=== PATIENT | female | born 1955 | race Caucasian/White ===

== ENCOUNTER 2022-02-27 08:53 | Outpatient (CLI) | payer OTHER, SELFPAY ==
--- NOTE | 2022-02-27 | DI.US_ITS ---
Exam(s) US LOWER EXTREMITY VENOUS LT EXAM: US LOWER EXTREMITY VENOUS LT CLINICAL HISTORY: PT WITH CA,LLE EDEMA, ? DVT,R60.0,C34.32 TECHNIQUE: Grayscale, color, and doppler imaging of the deep venous system of the left lower extremi ty was performed. COMPARISON: No exams were available for comparison FINDINGS: There is no evidence of intraluminal thrombus and there is normal compression and augmentation demons trated within the common femoral vein, femoral vein, and popliteal vein. In the ipsilateral calf the interrogated veins also exhibit normal compression/ augmentation properti es. The ipsilateral saphenofemoral junction is patent. IMPRESSION: 1. No evidence of DVT in the left lower extremity. DATA REPOSITORY:
== END 2022-02-27 09:13 ==
PROVIDERS: PCP Family Medicine; Visit Provider Nurse Practitioner Adult Health
DX: R60.0 Localized edema (principal); C34.32 Malignant neoplasm of lower lobe, left bronchus or lung; M79.662 Pain in left lower leg
CPT/HCPCS: 93971

== ENCOUNTER 2022-04-01 14:12 | Emergency (ER) | payer OTHER, SELFPAY ==
[2022-04-01 14:22] VITALS: BP 117/75; PULSE 110; RESP 22; TEMP 37.2; O2SAT 97
--- NOTE | 2022-04-01 14:45 | DI.CT_ITS ---
Exam(s) CT RENAL COLIC WO EXAM: CT RENAL COLIC WO CLINICAL HISTORY: right flank pain. TECHNIQUE: Imaging Protocol: Axial computed tomography images with coronal and sagittal reformatted images were created and reviewed. COMPARISON: No exams were available for comparison FINDINGS: ABDOMEN: Lung Bases: Normal where visualized. Liver: There is a 4.1 AP by 3.3 transverse by 3 cm craniocaudad hypodense lesion in the right lobe of the liver. No measurable mass. Gallbladder and biliary tract: No radiodense calculus or biliary ductal dilation. Pancreas: Normal density, no abnormal calcifications or inflammatory process. Spleen: Normal. Kidneys: Normal size, contour and axis.No radiodense stones or obstructive uropathy. No masses seen. Adrenal glands: There is mild thickening of the limbs of the adrenal glands but no nodule is seen. Lymph nodes: Within normal limits. Abdominal Aorta: There is a 3.3 x 3.1 cm infrarenal abdominal aortic aneurysm. Atherosclerosis is pr esent. There is calcification seen centrally within the aneurysm which may reflect thrombus or possi ble prior dissection. PELVIS: Bladder:Symmetric distention, no gross wall thickening. Bowel: There is diverticulosis seen in the descending and sigmoid colon but no evidence of acute dive rticulitis. There is a right paracentral anterior abdominal wall hernia containing a segment of rosa sverse colon. The involved colon shows thickening of the wall and mild infiltration of the surroundi ng fat. No obstruction is seen. No evidence of appendicitis. Peritoneal cavity: No ascites, collection or mesenteric inflammatory response. No free air. Reproductive organs: Status post hysterectomy. Bones: Grade 1 degenerative anterolisthesis of L5 on S1. Moderate lumbar spondylosis. Soft Tissues: Anterior abdominal wall hernia as described above. IMPRESSION: 1. Anterior abdominal wall hernia containing a loop of transverse colon. There is thickening of the wall of the involved transverse colon and infiltration of the surrounding fat raising the question of strangulation. No evidence of obstruction. 2. No evidence of nephrolithiasis or hydronephrosis. 3. 4.1 cm hypodense lesion in the right lobe of the liver. It does not meet the criteria for simple cyst. A postcontrast CT scan of the liver is recommended for further evaluation. 4. Findings were discussed with Dr. Neha Coleman at 4:15 p.m. on 04/01/2022. RADIATION DOSE DELIVERED: 821.96mGy.cm Total DLP DATA REPOSITORY: All CT scans at this facility are submitted to the National Radiology Data Registry (NRDR) Dose Index Registry (DIR) with the [employer] (ACR). RADIATION OPTIMIZATION: All CT scans at this facility use at least one of these dose optimization te chniques: automated exposure control; mA and/or kV adjustment per patient size (includes targeted exa ms where dose is matched to clinical indication); or iterative reconstruction.
--- NOTE | 2022-04-01 14:58 | ED.GENADUL_ITS ---
Discharge Plan Disposition Patient Disposition: STILL A PATIENT Discharge Details Chief Complaint: FlankPain Primary Care Provider: Joon Campos ED Provider: Neha Coleman Home Meds and New Rx's Prescriptions: No Action cyclobenzaprine 10 MG tablet 10 mg PO Q8H PRN PRN fluticasone propion-salmeterol [Advair Diskus] 1 PUFF blister with device 1 puff Inhalation BID omeprazole 40 MG capsule,delayed release(DR/EC) 40 mg PO DAILY lidocaine [Lidoderm] 1 PATCH adhesive patch,medicated 1 patch Topical DAILY Label Comments: 06/02/13 1 patch tp daily for no more than 12hours per MD.06/10/13 pt hasnot filled yet gabapentin 300 MG capsule 300 mg PO TID albuterol sulfate [Ventolin HFA] 200 PUFF HFA aerosol inhaler 2 puff Inhalation Q4H PRN PRN multivitamin 1 EACH capsule 1 cap PO DAILY tizanidine 2 mg capsule Label Comments: TAKE 1 TO 2 CAPSULES BY MOUTH TWICE DAILY NEEDED FOR PAIN atorvastatin 40 mg tablet 1 tab QPM Label Comments: TAKE 1 TABLET BY MOUTH ONCE DAILY meloxicam 15 mg tablet 1 tab QAM Label Comments: TAKE 1 TABLET BY MOUTH ONCE DAILY NEEDED lisinopril 20 mg tablet 20 mg QAM Label Comments: TAKE 1 TABLET BY MOUTH ONCE DAILY lisinopril 20 mg tablet 1 tab QAM Label Comments: TAKE 1 TABLET BY MOUTH ONCE DAILY fluticasone propion-salmeterol [Advair Diskus] 500-50 mcg/dose blister with device 1 ea INHALATION QAM Label Comments: INHALE 1 DOSE BY MOUTH EVERY 12 HOURS gabapentin 300 mg capsule 300 mg PRN PRN Label Comments: TAKE 2 CAPSULES BY MOUTH IN THE MORNING AND 1 AT NOON AND 4 AT BEDTIME montelukast 10 mg tablet 1 tab QPM Label Comments: TAKE 1 TABLET BY MOUTH ONCE DAILY FOR ALLERGIES albuterol sulfate 90 mcg/actuation HFA aerosol inhaler 2 puff INHALATION PRN PRN Label Comments: INHALE 2 PUFFS BY MOUTH EVERY 4 HOURS NEEDED FOR WHEEZING /COUGH Spiriva Respimat 2.5 mcg/actuation mist 1 spray INHALATION DAILY Label Comments: INHALE 2 SPRAY(S) BY MOUTH ONCE DAILY B12 Active 1,000 mcg Tablet,Chewable 1,000 mcg PO QAM Medical Decision Making Concern for pyelonephritis, ureterolithiasis, other. Exam/history at this time not consistent with appendicitis, acute aortic pathology, sepsis. Plan for IV placement, IV fluid hydration, IV pain medication, screening labs, CT renal. Will monitor and reassess. Patient signed out to Dr. Elder at time of shift change with CT, UA pending Medical Records Medical records reviewed: Yes I reviewed the patient's medical records. Lab Data Lab results reviewed: Yes I reviewed the patient's lab results. Labs: Laboratory Tests Range/Units 04/01/22 04/01/22 04/01/22 15:08 15:08 15:12 WBC (4.4-10.8) 10^3/uL 4.94 RBC (3.93-5.22) 10^6/uL 3.57 L Hgb (11.2-15.7) g/dL 11.4 Hct (36.0-46.0) % 33.5 L MCV (80-95) fL 94 MCH (27.0-33.0) pg 31.9 MCHC (32.0-36.0) % 34.0 RDW (11.7-14.6) % 16.4 H Plt Count (130-400) 10^3/uL 95 L MPV (8.0-11.0) fL 10.6 Immature Gran % 0.0 Neutrophils % 61.0 Lymphocytes % 23.0 Atypical Lymphs % 3 Monocytes % 9.0 Eosinophils % 4.0 Basophils % 0.0 Nucleated RBC % (0.0-0.3) % 0.0 Absolute Neutrophils (1.2-6.7) 10^3/uL 3.01 Absolute Lymphocytes (1.2-3.4) 10^3/uL 1.28 Absolute Monocytes (0.1-0.8) 10^3/uL 0.44 Absolute Eosinophils (0.0-0.7) 10^3/uL 0.20 Absolute Basophils (0.0-0.2) 10^3/uL 0.00 RBC Morphology Normal Sodium (136-145) mmol/L 142 Potassium (3.5-5.1) mmol/L 3.6 Chloride (98-107) mmol/L 106 Carbon Dioxide (21.0-32.0) mmol/L 29.2 Anion Gap (3-11) mmol/L 6.8 BUN (7-18) mg/dL 10 Creatinine (0.55-1.02) mg/dL 0.9 Est GFR (CKD-EPI 2020) (mL/min/1.73m2) 70.95 Glucose (74-106) mg/dL 98 Calcium (8.5-10.1) mg/dL 9.1 Total Bilirubin (0.2-1.0) mg/dL 0.2 AST (15-37) U/L 25 ALT (14-59) U/L 43 Alkaline Phosphatase (46-116) U/L 88 Total Protein (6.4-8.2) g/dL 7.1 Albumin (3.4-5.0) g/dL 3.0 L Urine Color Cancelled Urine Clarity Cancelled Urine pH Cancelled Ur Specific [place] Cancelled Urine Protein Cancelled Urine Ketones Cancelled Urine Blood Cancelled Urine Nitrite Cancelled Urine Bilirubin Cancelled Urine Urobilinogen Cancelled Ur Leukocyte Esterase Cancelled Urine Glucose Cancelled HPI General Mode of arrival: ambulatory . Date/Time Provider Initiated Documentation: 04/01/22 14:45 . Limitations to Documentation: no limitations . Information obtained by: patient, RN notes reviewed and old records reviewed . HPI Narrative: Aydee Lee is a 66-year-old woman with a history of asthma, depression, GERD, hyperlipidemia, lung cancer with mets to the liver, spine, and brain presenting to the emergency department with flank pain. Patient reports that she is currently being treated for lung cancer with radiation, immunotherapy, chemotherapy. She reports that her last chemotherapy infusion was 2 weeks ago and she is due for another in 1 week. Patient reports that 2 days ago she developed pain in her right flank that is waxing and waning. Patient reports that she had similar pain in the past 40 years ago when she had a kidney infection or kidney stone. She states that she has been taking Tylenol with some relief. She states that she had a fever of 100.2 this morning, has not had other fevers. She denies any other new pain, vomiting, diarrhea, numbness, focal weakness, rash. Patient reports that she has some baseline cough and shortness of breath that is unchanged from her chronic symptoms. Patient states that she has been told she is not to take ibuprofen, and has vomiting in response to morphine and codeine. She states that she has had fentanyl in the past without issue. Related Data Home Medications Medication Instructions Recorded Confirmed albuterol sulfate 90 mcg/actuation 2 puff inhalation Q4H PRN PRN 06/02/13 04/01/22 aerosol inhaler (Ventolin HFA) cyclobenzaprine 10 mg tablet 10 mg PO Q8H PRN PRN 06/02/13 06/02/13 fluticasone 250 mcg-salmeterol 50 1 puff inhalation BID 06/02/13 06/02/13 mcg/dose blistr powdr for inhalation (Advair Diskus) gabapentin 300 mg capsule 300 mg PO TID 06/02/13 04/01/22 lidocaine 5 % topical patch 1 patch topical DAILY 06/02/13 06/02/13 (Lidoderm) multivitamin 1 cap PO DAILY 06/02/13 04/01/22 omeprazole 40 mg capsule,delayed 40 mg PO DAILY 06/02/13 06/02/13 release albuterol sulfate 90 mcg/actuation 2 puff inhalation PRN PRN 04/01/22 04/01/22 aerosol inhaler atorvastatin 40 mg tablet 1 tab QPM 04/01/22 04/01/22 fluticasone 500 mcg-salmeterol 50 1 ea inhalation QAM 04/01/22 04/01/22 mcg/dose blistr powdr for inhalation (Advair Diskus) gabapentin 300 mg capsule 300 mg PRN PRN 04/01/22 04/01/22 lisinopril 20 mg tablet 1 tab QAM 04/01/22 04/01/22 lisinopril 20 mg tablet 20 mg QAM 04/01/22 04/01/22 mecobalamin (vitamin B12) 1,000 1,000 mcg PO QAM 04/01/22 04/01/22 mcg chewable tablet (B12 Active) meloxicam 15 mg tablet 1 tab QAM 04/01/22 04/01/22 montelukast 10 mg tablet 1 tab QPM 04/01/22 04/01/22 tiotropium bromide 2.5 1 spray inhalation DAILY 04/01/22 04/01/22 mcg/actuation mist for inhalation (Spiriva Respimat) tizanidine 2 mg capsule cap 04/01/22 04/01/22 Allergies Allergy/AdvReac Type Severity Reaction Status Date / Time bee venom protein (honey bee) Allergy Severe Unverified 04/01/22 14:57 codeine Allergy Severe severe Unverified 06/10/13 09:19 vomiting morphine Allergy Severe vomiting Unverified 06/10/13 09:19 Penicillins Allergy Intermediate Hives Unverified 06/10/13 09:19 tramadol HCl [From Ultram] Allergy Intermediate Hives Unverified 06/10/13 09:19 General Stated Complaint: FlankPain CITLALY: 3 Review of Systems Narrative: Constitutional: Reports temperature 100.2 this morning, denies other fever Eyes: denies eye pain ENT: denies ear pain, dental pain, sore throat Cardiovascular: denies chest pain, edema Respiratory: Reports chronic unchanged SOB and cough GI: denies abdominal pain, vomiting, diarrhea : Reports right-sided flank pain, denies dysuria MSK: denies back pain, neck pain, arthralgias, myalgias Skin: denies rash Neuro: denies headaches, numbness, weakness PFSH Social History Smoking/Tobacco Use Status: Current every day Tobacco Type: cigarettes Tobacco: How many years used: 50 Smoking risk assessment performed?: Yes Alcohol Intake: current Alcohol Intake frequency: holidays/special occasions only Alcohol type: wine and hard liquor Drug use: Never Substance use type: marijuana Do you feel safe at home: Yes Do you feel safe in your relationship?: Yes Exam Narrative Exam Narrative: Constitutional: well and [id number], pleasant, conversing normally HENT: head atraumatic/normocephalic/normal inspection, mucous membranes moist Eyes: conjunctiva normal, sclera normal, pupils 3mm b/l Neck: no stridor, normal ROM, trachea midline Resp: normal work of breathing, speaking in full sentences Cardio: normal rate, normal rhythm GI: abdomen soft, non-tender, non-distended, mild tenderness palpation right CVA, no left CVA tenderness Back: normal inspection, no rash Skin: warm, dry, normal color, no rash Neuro: alert, not altered, grossly non-focal, normal tone Ext: Moving all extremities equally Psych: normal mood, normal affect, normal behavior Course Vital Signs Vital signs: Vital Signs Temperature 37.2 C 04/01/22 14:22 Pulse 110 H 04/01/22 14:22 Respiratory Rate 22 04/01/22 14:22 Blood Pressure 117/75 04/01/22 14:22 Pulse Oximetry 97 04/01/22 14:22 Temperature 37.2 C 04/01/22 14:22 Temperature Source Tympanic 04/01/22 14:22 Pulse 110 H 04/01/22 14:22 Respiratory Rate 22 04/01/22 14:22 Respiratory Effort 04/01/22 14:31 Blood Pressure 117/75 04/01/22 14:22 Blood Pressure Position Sitting 04/01/22 14:22 Pulse Oximetry 97 04/01/22 14:22 Oxygen Delivery Method Room Air 04/01/22 14:22 Oxygen Flow Rate 0 04/01/22 14:22
--- NOTE | 2022-04-01 15:00 | DI.US_ITS ---
Exam(s) US EXTREMITY VENOUS BI EXAM: US EXTREMITY VENOUS right CLINICAL HISTORY: SOB, LE edema TECHNIQUE: Right lower extremity venous ultrasound performed using grayscale, color-flow, and spectr al Doppler analysis. COMPARISON: No exams were available for comparison FINDINGS: The right common femoral, femoral and popliteal veins demonstrate normal compressibility, augmentatio n, and color Doppler. The posterior tibialis veins were not evaluated on this examination. The saph enofemoral junction is unremarkable. There is a 1.6 x 0.4 x 1.6 cm Oropeza's cyst. The soft tissues a re unremarkable. IMPRESSION: 1. No evidence of a right lower extremity DVT. 2. Results of this exam have been verbally communicated with provider. DATA REPOSITORY:
[2022-04-01] MEDS: Normal Saline 500 ML IV (15:13)
[2022-04-01 15:16] LABS: HCT 33.5 % (36.0-46.0); HGB 11.4 g/dL (11.2-15.7); MCH 31.9 pg (27.0-33.0); MCV 94 fL (80-95); MPV 10.6 fL (8.0-11.0); RBC 3.57 10^6/uL (3.93-5.22); RDW 16.4 % (11.7-14.6); RDW-SD 51.5 fL; WBC 4.94 10^3/uL (4.4-10.8)
[2022-04-01] MEDS: Ondansetron 4 MG/2 ML VIAL (15:22)
[2022-04-01] MEDS: fentaNYL 100 MCG/2 ML VIAL 50 MCG IVP ×2 (15:22→18:13)
[2022-04-01 15:34] LABS: ALT 43 U/L (14-59); AST 25 U/L (15-37); Alkaline Phosphatase 88 U/L (46-116); Anion Gap 6.8 mmol/L (3-11); BUN 10 mg/dL (7-18); Bilirubin, Total 0.2 mg/dL (0.2-1.0); CO2 29.2 mmol/L (21.0-32.0); CREATININE 0.9 mg/dL (0.55-1.02); Calcium 9.1 mg/dL (8.5-10.1); Chloride 106 mmol/L (98-107); Estimated GFR 70.95 (mL/min/1.73m2); Glucose 98 mg/dL (74-106); Potassium 3.6 mmol/L (3.5-5.1); Sodium 142 mmol/L (136-145); Total Protein 7.1 g/dL (6.4-8.2)
[2022-04-01 15:42] LABS: Absolute Lymphocyte Count 1.28 10^3/uL (1.2-3.4); Absolute Monocyte Count 0.44 10^3/uL (0.1-0.8); Absolute Neutrophil Count 3.01 10^3/uL (1.2-6.7); Atypical Lymphocytes % 3
[2022-04-01 15:43] LABS: Diff Comment Manual Differential; Platelet Count 95 10^3/uL (130-400); RBC Morphology Normal
--- NOTE | 2022-04-01 16:30 | DI.CT_ITS ---
Exam(s) CT ABDOMEN PELVIS CTA EXAM: CT ABDOMEN PELVIS CTA CLINICAL HISTORY: flank pain, abnormal aorta on non-contrast ct. TECHNIQUE: Imaging Protocol: Axial CT angiography was performed with multi-slice acquisition and m ulti-planar and/or 3D reconstructions. CONTRAST MATERIAL: Intravenous: Omnipaque 350 Contrast volume:99mL Oral: No COMPARISON: CT CT RENAL COLIC WO from 04/01/2022 FINDINGS: ABDOMEN AND PELVIS: Abdomen: Celiac axis/mesenteric arteries: No evidence of occlusion or significant stenosis. Mild atheroscleros is at the origin. Renal Arteries: No evidence of occlusion or significant stenosis. There is a single renal artery perf using each kidney. Aorta: There is a 3.3 x 3.1 cm infrarenal abdominal aortic aneurysm. There is extensive atheroscler otic plaque identified. There is an ulcerating plaque with associated dissection in the infrarenal a bdominal aorta. Pelvis: Iliac Arteries: There is an ulcerating plaque seen in the proximal left common iliac artery. Common Femoral Arteries: No evidence of occlusion or significant stenosis. Atherosclerosis. ABDOMEN: Lung bases: There is an opacity seen in the left lower lobe. Liver: There is a 4.1 x 3.3 cm hypo dense mass in the posterior segment of the right lobe of the live r. The liver is of normal density. Portal, Superior Mesenteric, and Splenic Veins: Unremarkable. Gallbladder and Biliary Tract: No radiodense calculus or dilation. Pancreas: Normal density, no abnormal calcifications or inflammatory process. Spleen: Normal. Adrenals: There is nodularity of the limbs of the left adrenal gland without definite mass. The righ t adrenal gland is unremarkable. Kidneys: Normal size, contour and axis. No radiodense stones or obstructive uropathy. No masses seen. Bowel: There is no evidence of obstruction. There is a a anterior abdominal wall hernia to the right of midline containing a loop of transverse colon. The transverse colon shows mild bowel wall [place]. There is mild infiltration of the surrounding soft tissues. Strangulation cannot be excluded. No evidence of obstruction. There is diverticulosis seen in the sigmoid colon, but no evidence of acute diverticulitis. No evidence of appendicitis. Peritoneal Cavity: No ascites, collection or mesenteric inflammatory response. No free air. Lymph Nodes: Within normal limits. Bones: Within normal limits for the patient's age. Anterolisthesis is again seen of L5 on S1. Soft Tissues: Anterior abdominal wall hernia as described above. PELVIS: Bladder: Symmetric distention, no gross wall thickening. Reproductive Organs: Status post hysterectomy. Lymph Nodes: Within normal limits. Bones: Within normal limits. IMPRESSION: 1. Infrarenal abdominal aortic aneurysm measuring 3.3 x 3.1 cm with associated small focus of dissect ion and ulcerating plaque, which may be chronic. Please correlate with clinical findings. 2. Large right paraumbilical anterior abdominal wall hernia containing a loop of transverse colon wit h thickened wall concerning for incarceration/strangulation. No evidence of obstruction. 3. 4.1 cm hepatic mass suspicious for metastatic disease. 4. Partially visualized opacity in the left lower lobe concerning for malignancy. RADIATION DOSE DELIVERED: 741.07mGy.cm Total DLP DATA REPOSITORY: All CT scans at this facility are submitted to the National Radiology Data Registry (NRDR) Dose Index Registry (DIR) with the [employer] (ACR). RADIATION OPTIMIZATION: All CT scans at this facility use at least one of these dose optimization te chniques: automated exposure control; mA and/or kV adjustment per patient size (includes targeted exa ms where dose is matched to clinical indication); or iterative reconstruction.
[2022-04-01 16:47] LABS: Bilirubin Negative (Negative); Blood Trace-lysed (Negative); Clarity Clear (Clear); Glucose Negative (Negative); Ketones Negative (Negative); Leukocyte Esterase Negative (Negative); Nitrite Negative (Negative); Urobilinogen 0.2 EU/dL (Up TO 0.2)
[2022-04-01 16:54] LABS: Bacteria Negative HPF (Negative); C & S Indicated? No; Casts Negative LPF (Negative); Crystals Negative HPF (Negative); Epithelial Cells Few HPF (Negative); Mucus Trace (Negative); RBC 0-2 HPF (0-2); WBC Negative HPF (0-5)
[2022-04-01] MEDS: Ondansetron 4 MG/2 ML VIAL IVP (18:13)
[2022-04-01] MEDS: Omnipaque 350 MG/ML 100 ML BTL 99 ML IJ (18:39)
[2022-04-01] MEDS: Normal Saline Flush 10 ML SYR IVP (18:39)
[2022-04-01 18:53] VITALS: BP 118/65; PULSE 68; RESP 17; TEMP 37.1; O2SAT 97
--- NOTE | 2022-04-01 19:53 | DI.VRAD_ITS ---
PROCEDURE INFORMATION: Exam: CTA Abdomen and Pelvis With Contrast Exam date and time: 04/01/2022 6:17 PM Age: 66 years old Clinical indication: Patient HX: Flank pain, abnormal aorta on non contrast CT scan. PT has known stage iv lung cancer TECHNIQUE: Imaging protocol: Computed tomographic angiography of the abdomen and pelvis with contrast. 3D rendering (Not supervised by radiologist): MIP and/or 3D reconstructed images were created by the technologist. Contrast material: OMNIPAQUE 350; Contrast volume: 99 ml; Contrast route: INTRAVENOUS (IV); COMPARISON: CT RENAL COLIC WO 04/01/2022 3:40 PM FINDINGS: Lungs: Small patchy opacities partially visualized in the left lung. Aorta: There is extensive atherosclerotic plaque throughout the abdominal aorta. There is a large ulcerating plaque with associated dissection in the infrarenal abdominal aorta. The aorta measures approximately 3.2 cm in maximal AP dimension, consistent with mild aneurysm (image 317, series 5). Celiac trunk and mesenteric arteries: There is mild narrowing at the origins secondary to atherosclerotic plaque. No occlusion or severe stenosis. Renal arteries: No occlusion or significant stenosis. Right iliac arteries: No occlusion or significant stenosis. Left iliac arteries: Ulcerating plaque seen in the left common iliac artery. Liver: There is a 3.8 cm hypodense mass seen in the right hepatic lobe (, image 186, series 5). Gallbladder and bile ducts: The gallbladder is unremarkable. No calcified stones. No ductal dilation. Pancreas: No pancreatic lesion seen. Spleen: The spleen is unremarkable. No splenomegaly. No ductal dilation. Adrenal glands: There is nodular thickening of the left adrenal gland. Kidneys and ureters: The kidneys are unremarkable. No hydronephrosis. Stomach and bowel: There is sigmoid diverticulosis without acute diverticulitis. No bowel obstruction. Appendix: No evidence of appendicitis. Intraperitoneal space: No free air. No significant fluid collection. Lymph nodes: No enlarged lymph nodes. Urinary bladder: Unremarkable urinary bladder. Reproductive: Unremarkable as visualized. Bones/joints: No acute fracture. Soft tissues: There is a paraumbilical hernia containing a loop of transverse colon with associated fat stranding and mild bowel wall thickening. IMPRESSION: 1. Large 3.8 cm hypodense mass in the right hepatic lobe, concerning for metastatic disease. Correlate with clinical history and compare with prior imaging. 2. Large right paraumbilical hernia containing a thickened loop of transverse colon, which may represent inflamed bowel associated with incarceration. No bowel obstruction. 3. Extensive atherosclerotic plaque with mild infrarenal abdominal aortic aneurysm and associated small focus of dissection and ulcerating plaque, which may be chronic. However, correlate with clinical findings and compare with prior imaging to evaluate for possible superimposed acuity. 4. Partially visualized opacity in the left lung, which could be related to known malignancy. Clinical correlation recommended. THIS REPORT CONTAINS FINDINGS THAT MAY BE CRITICAL TO PATIENT CARE. The findings were verbally communicated via telephone conference with Dr Elder at 7:49 PM EDT on 04/01/2022. The findings were acknowledged and understood. Dictated and Authenticated by: Mylene Adam MD. Ordering:ANTONIO Solomon MD
--- NOTE | 2022-04-01 20:09 | ED.PROG_ITS ---
Date of service: 04/01/22 Time of Service: 20:09 Medical Decision Making pt signed out to me pending cta which shows large hypodense mass in the liver concerning for mets, patient states she has known mets to the liver. She also has a large paraumbilical hernia and she states she has had this for a long time as well, has no tenderness of her abdomen in this area. She has small infrarenal aortic aneurysm with a small focus of dissection and per radiologist is likely chronic but there is no old images to compare, i [place] [facility] [place] ct abdomen/pelvis that i could find. She is stable and requesting d/c. Discussed findings with the patient and that I wanted to discuss with vascular surgery at [facility] but she doesn't want to wait until they call back. Also discussed i wanted to review case with general surgery about her hernia, she again doesn't want to stay. She is caox4 and has capacity to make her own decisions and understands potential risks to leaving including and permanent disability and still wants to leave. She is choosing to leave against medical advise. She understands she can return if she changes her mind, advised to f/u with pcp and oncology sandra as well as vascular surgery Imaging Data Radiologic Study: Attestation: I personally reviewed and interpreted this imaging study as follows: Imaging: CT Scan Radiologist's impression: IMPRESSION: 1. Large 3.8 cm hypodense mass in the right hepatic lobe, concerning for metastatic disease. Correlate with clinical history and compare with prior imaging. 2. Large right paraumbilical hernia containing a thickened loop of transverse colon, which may represent inflamed bowel associated with incarceration. No bowel obstruction. 3. Extensive atherosclerotic plaque with mild infrarenal abdominal aortic aneurysm and associated small focus of dissection and ulcerating plaque, which may be chronic. However, correlate with clinical findings and compare with prior imaging to evaluate for possible superimposed acuity. 4. Partially visualized opacity in the left lung, which could be related to known malignancy. Clinical correlation recommended. Lab Data Lab results reviewed: Yes I reviewed the patient's lab results. Sign Out Sign Out Data: Sign Out Comment: Patient signed out to Dr. Elder at time of shift change with CT, UA pending Last updated by Neha Coleman MD at 04/01/22 16:28 Discharge Plan Disposition Patient Disposition: AGAINST MEDICAL ADVICE Condition: Serious Discharge Details Clinical Impression: Flank pain, AAA (abdominal aortic aneurysm), Aortic dissection Primary Care Provider: Joon Campos ED Provider: Maxim Elder Home Meds and New Rx's Prescriptions: Continued cyclobenzaprine 10 MG tablet 10 mg PO Q8H PRN PRN fluticasone propion-salmeterol [Advair Diskus] 1 PUFF blister with device 1 puff Inhalation BID omeprazole 40 MG capsule,delayed release(DR/EC) 40 mg PO DAILY lidocaine [Lidoderm] 1 PATCH adhesive patch,medicated 1 patch Topical DAILY Label Comments: 06/02/13 1 patch tp daily for no more than 12hours per MD.06/10/13 pt hasnot filled yet gabapentin 300 MG capsule 300 mg PO TID albuterol sulfate [Ventolin HFA] 200 PUFF HFA aerosol inhaler 2 puff Inhalation Q4H PRN PRN multivitamin 1 EACH capsule 1 cap PO DAILY tizanidine 2 mg capsule Label Comments: TAKE 1 TO 2 CAPSULES BY MOUTH TWICE DAILY NEEDED FOR PAIN atorvastatin 40 mg tablet 1 tab QPM Label Comments: TAKE 1 TABLET BY MOUTH ONCE DAILY meloxicam 15 mg tablet 1 tab QAM Label Comments: TAKE 1 TABLET BY MOUTH ONCE DAILY NEEDED lisinopril 20 mg tablet 20 mg QAM Label Comments: TAKE 1 TABLET BY MOUTH ONCE DAILY lisinopril 20 mg tablet 1 tab QAM Label Comments: TAKE 1 TABLET BY MOUTH ONCE DAILY fluticasone propion-salmeterol [Advair Diskus] 500-50 mcg/dose blister with device 1 ea INHALATION QAM Label Comments: INHALE 1 DOSE BY MOUTH EVERY 12 HOURS gabapentin 300 mg capsule 300 mg PRN PRN Label Comments: TAKE 2 CAPSULES BY MOUTH IN THE MORNING AND 1 AT NOON AND 4 AT BEDTIME montelukast 10 mg tablet 1 tab QPM Label Comments: TAKE 1 TABLET BY MOUTH ONCE DAILY FOR ALLERGIES albuterol sulfate 90 mcg/actuation HFA aerosol inhaler 2 puff INHALATION PRN PRN Label Comments: INHALE 2 PUFFS BY MOUTH EVERY 4 HOURS NEEDED FOR WHEEZING /COUGH Spiriva Respimat 2.5 mcg/actuation mist 1 spray INHALATION DAILY Label Comments: INHALE 2 SPRAY(S) BY MOUTH ONCE DAILY B12 Active 1,000 mcg Tablet,Chewable 1,000 mcg PO QAM Discharge Instructions Instructions: Nonruptured Abdominal Aortic Aneurysm (DC) Additional Instructions: you were found to have an abdominal hernia and a small area of seperation of the wall of the aorta in this area you chose to leave before I could discuss with vascular surgery follow up with your primary care provider and oncologist as soon as possible if you feel more ill, have severe worsening pain or difficulty breathing return to the emergency department
== END 2022-04-01 20:29 | disposition left against medical advice (07) ==
PROVIDERS: Student in an Organized Health Care Education/Training Program; Emergency Provider Emergency Medicine; PCP Family Medicine
DX: I71.02 Dissection of abdominal aorta (principal); I71.00 Dissection of unspecified site of aorta; C34.90 Malignant neoplasm of unspecified part of unspecified bronchus or lung; C78.7 Secondary malignant neoplasm of liver and intrahepatic bile duct; C79.31 Secondary malignant neoplasm of brain; C79.51 Secondary malignant neoplasm of bone; J45.909 Unspecified asthma, uncomplicated; K42.9 Umbilical hernia without obstruction or gangrene; Z79.52 Long term (current) use of systemic steroids; Z53.29 Procedure and treatment not carried out because of patient's decision for other reasons; F17.210 Nicotine dependence, cigarettes, uncomplicated; R60.0 Localized edema
CPT/HCPCS: 80053; 96361; 96372; 96374; 96375; 96376; 99285; 74174; 74176; 81003; 81015; 83605; 85025; 93970; 99284; J2405; J3010; J3490

== ENCOUNTER 2022-04-08 02:27 | Outpatient (RCR) | payer OTHER, SELFPAY ==
[2022-03-18] MEDS: Normal Saline Flush 10 ML SYR IVP (08:48)
[2022-03-18 08:56] LABS: Abs Immature Grans 0.43 10^3/uL (0.0-0.06); Absolute Monocyte Count 0.93 10^3/uL (0.1-0.8); Absolute Neutrophil Count 10.05 10^3/uL (1.2-6.7); Basophils % 0.8; Eosinophils % 0.7; HCT 36.7 % (36.0-46.0); HGB 12.3 g/dL (11.2-15.7); Lymphocytes % 19.6; MCHC 33.5 % (32.0-36.0); MCV 96 fL (80-95); Monocytes % 6.4; Neutrophils % 69.5; Platelet Count 276 10^3/uL (130-400); RBC 3.84 10^6/uL (3.93-5.22); RDW 15.9 % (11.7-14.6); RDW-SD 53.1 fL; WBC 14.46 10^3/uL (4.4-10.8)
[2022-03-18 08:57] LABS: Absolute Basophil Count 0.12 10^3/uL (0.0-0.2); Absolute Lymphocyte Count 2.83 10^3/uL (1.2-3.4)
[2022-03-18 09:26] LABS: ALT 41 U/L (14-59); AST 25 U/L (15-37); Albumin 3.2 g/dL (3.4-5.0); Alkaline Phosphatase 89 U/L (46-116); Anion Gap 6.8 mmol/L (3-11); BUN 20 mg/dL (7-18); Bilirubin, Total 0.3 mg/dL (0.2-1.0); CO2 30.2 mmol/L (21.0-32.0); CREATININE 0.8 mg/dL (0.55-1.02); Calcium 9.1 mg/dL (8.5-10.1); Chloride 103 mmol/L (98-107); Estimated GFR 81.72 (mL/min/1.73m2); FREE T4 0.93 ng/dL (0.76-1.46); Glucose 102 mg/dL (74-106); Magnesium 1.9 mg/dL (1.8-2.4); Potassium 3.8 mmol/L (3.5-5.1); Sodium 140 mmol/L (136-145); TSH 0.83 uIU/mL (0.36-3.74); Total Protein 6.9 g/dL (6.4-8.2)
[2022-04-08 09:17] LABS: Abs Immature Grans 0.33 10^3/uL (0.0-0.06); Absolute Basophil Count 0.09 10^3/uL (0.0-0.2); Absolute Eosinophil Count 0.14 10^3/uL (0.0-0.7); Absolute Lymphocyte Count 1.56 10^3/uL (1.2-3.4); Absolute Monocyte Count 1.33 10^3/uL (0.1-0.8); Absolute Neutrophil Count 5.88 10^3/uL (1.2-6.7); Eosinophils % 1.5; HCT 31.2 % (36.0-46.0); HGB 10.5 g/dL (11.2-15.7); Immature Grans % 3.5; Lymphocytes % 16.7; MCHC 33.7 % (32.0-36.0); MCV 95 fL (80-95); MPV 10.3 fL (8.0-11.0); Monocytes % 14.3; Platelet Count 375 10^3/uL (130-400); RBC 3.28 10^6/uL (3.93-5.22); RDW 17.7 % (11.7-14.6); WBC 9.33 10^3/uL (4.4-10.8)
[2022-04-08] MEDS: Normal Saline Flush 10 ML SYR IVP (09:30)
[2022-04-08 09:45] LABS: ALT 35 U/L (14-59); AST 28 U/L (15-37); Albumin 2.5 g/dL (3.4-5.0); Alkaline Phosphatase 75 U/L (46-116); Anion Gap 10.1 mmol/L (3-11); BUN 31 mg/dL (7-18); Bilirubin, Total 0.2 mg/dL (0.2-1.0); CO2 24.9 mmol/L (21.0-32.0); CREATININE 1.3 mg/dL (0.55-1.02); Calcium 7.8 mg/dL (8.5-10.1); Chloride 103 mmol/L (98-107); Estimated GFR 45.35 (mL/min/1.73m2); FREE T4 1.13 ng/dL (0.76-1.46); Glucose 98 mg/dL (74-106); Magnesium 1.6 mg/dL (1.8-2.4); Potassium 3.5 mmol/L (3.5-5.1); Sodium 138 mmol/L (136-145); TSH 2.06 uIU/mL (0.36-3.74); Total Protein 6.8 g/dL (6.4-8.2)
== END 2022-04-15 23:59 | disposition home or self-care (01) ==
LOC: INF 02:27
PROVIDERS: PCP Family Medicine; Visit Provider Internal Medicine Medical Oncology
DX: C34.32 Malignant neoplasm of lower lobe, left bronchus or lung (principal); Z79.899 Other long term (current) drug therapy; Z45.2 Encounter for adjustment and management of vascular access device
CPT/HCPCS: 36591; 80053; 83735; 84439; 84443; 85025

== ENCOUNTER 2022-05-06 02:26 | Outpatient (RCR) | payer OTHER, SELFPAY ==
[2022-05-06] MEDS: Normal Saline Flush 10 ML SYR IVP (12:46)
[2022-05-06 13:07] LABS: Abs Immature Grans 0.28 10^3/uL (0.0-0.06); Absolute Basophil Count 0.23 10^3/uL (0.0-0.2); Absolute Eosinophil Count 0.06 10^3/uL (0.0-0.7); Absolute Lymphocyte Count 1.92 10^3/uL (1.2-3.4); Absolute Monocyte Count 1.56 10^3/uL (0.1-0.8); Absolute Neutrophil Count 10.51 10^3/uL (1.2-6.7); Basophils % 1.6; Eosinophils % 0.4; HCT 29.3 % (36.0-46.0); HGB 9.4 g/dL (11.2-15.7); Immature Grans % 1.9; Lymphocytes % 13.2; MCHC 32.1 % (32.0-36.0); MCV 103 fL (80-95); MPV 10.4 fL (8.0-11.0); Monocytes % 10.7; Neutrophils % 72.2; Nucleated RBC 0.3 % (0.0-0.3); Platelet Count 542 10^3/uL (130-400); RBC 2.85 10^6/uL (3.93-5.22); RDW 22.6 % (11.7-14.6); RDW-SD 81.5 fL; WBC 14.56 10^3/uL (4.4-10.8)
[2022-05-06 13:17] LABS: Anisocytosis 2+; Diff Comment Diff Reviewed
[2022-05-06 13:32] LABS: ALT 22 U/L (14-59); AST 31 U/L (15-37); Albumin 2.3 g/dL (3.4-5.0); Alkaline Phosphatase 102 U/L (46-116); Anion Gap 12.9 mmol/L (3-11); BUN 8 mg/dL (7-18); Bilirubin, Total 0.7 mg/dL (0.2-1.0); CO2 23.1 mmol/L (21.0-32.0); CREATININE 0.9 mg/dL (0.55-1.02); Calcium 8.2 mg/dL (8.5-10.1); Chloride 101 mmol/L (98-107); Estimated GFR 70.51 (mL/min/1.73m2); FREE T4 1.57 ng/dL (0.76-1.46); Glucose 82 mg/dL (74-106); Magnesium 1.8 mg/dL (1.8-2.4); Potassium 3.1 mmol/L (3.5-5.1); Sodium 137 mmol/L (136-145); TSH 2.26 uIU/mL (0.36-3.74); Total Protein 7.8 g/dL (6.4-8.2)
== END 2022-05-15 23:59 | disposition home or self-care (01) ==
LOC: INF 02:26
PROVIDERS: PCP Family Medicine; Visit Provider Internal Medicine Medical Oncology
DX: C34.32 Malignant neoplasm of lower lobe, left bronchus or lung (principal); Z79.899 Other long term (current) drug therapy; Z45.2 Encounter for adjustment and management of vascular access device
CPT/HCPCS: 36591; 80053; 83735; 84439; 84443; 85025

== ENCOUNTER 2022-05-20 03:47 | Outpatient (RCR) | payer OTHER, SELFPAY ==
[2022-05-20] MEDS: Normal Saline Flush 10 ML SYR IVP (08:55)
[2022-05-20 08:57] LABS: Abs Immature Grans 0.16 10^3/uL (0.0-0.06); Absolute Lymphocyte Count 2.51 10^3/uL (1.2-3.4); Basophils % 1.2; Eosinophils % 9.5; HCT 33.4 % (36.0-46.0); HGB 10.5 g/dL (11.2-15.7); Immature Grans % 1.2; Lymphocytes % 18.4; MCH 34.3 pg (27.0-33.0); MCHC 31.4 % (32.0-36.0); MCV 109 fL (80-95); MPV 9.8 fL (8.0-11.0); Monocytes % 10.9; Neutrophils % 58.8; Platelet Count 277 10^3/uL (130-400); RBC 3.06 10^6/uL (3.93-5.22); RDW 21.4 % (11.7-14.6); RDW-SD 86.2 fL; WBC 13.64 10^3/uL (4.4-10.8)
[2022-05-20 09:03] LABS: Absolute Basophil Count 0.16 10^3/uL (0.0-0.2); Absolute Monocyte Count 1.49 10^3/uL (0.1-0.8); Absolute Neutrophil Count 8.02 10^3/uL (1.2-6.7)
[2022-05-20 09:20] LABS: ALT 21 U/L (14-59); AST 27 U/L (15-37); Albumin 3.1 g/dL (3.4-5.0); Alkaline Phosphatase 80 U/L (46-116); Anion Gap 7.4 mmol/L (3-11); BUN 14 mg/dL (7-18); Bilirubin, Total 0.3 mg/dL (0.2-1.0); CO2 27.6 mmol/L (21.0-32.0); CREATININE 1.1 mg/dL (0.55-1.02); Calcium 9.3 mg/dL (8.5-10.1); Chloride 107 mmol/L (98-107); Estimated GFR 55.42 (mL/min/1.73m2); FREE T4 1.05 ng/dL (0.76-1.46); Glucose 114 mg/dL (74-106); Magnesium 1.8 mg/dL (1.8-2.4); Potassium 4.9 mmol/L (3.5-5.1); Sodium 142 mmol/L (136-145); TSH 2.13 uIU/mL (0.36-3.74); Total Protein 7.7 g/dL (6.4-8.2)
[2022-05-20 09:23] LABS: Anisocytosis 3+; Diff Comment RBC Morph Reviewed; Macrocytosis 1+; Polychromasia Present
== END 2022-06-15 23:59 | disposition home or self-care (01) ==
LOC: INF 03:47
PROVIDERS: PCP Family Medicine; Visit Provider Internal Medicine Medical Oncology
DX: C34.32 Malignant neoplasm of lower lobe, left bronchus or lung (principal); Z79.899 Other long term (current) drug therapy; Z45.2 Encounter for adjustment and management of vascular access device
CPT/HCPCS: 36415; 36591; 80053; 83735; 84439; 84443; 85025

== ENCOUNTER 2022-07-10 01:45 | Outpatient (RCR) | payer MEDICARE, SELFPAY ==
[2022-07-10] MEDS: Normal Saline Flush 10 ML SYR IVP (09:57)
[2022-07-10 10:04] LABS: Abs Immature Grans 0.01 10^3/uL (0.0-0.06); Absolute Basophil Count 0.08 10^3/uL (0.0-0.2); Absolute Eosinophil Count 0.24 10^3/uL (0.0-0.7); Absolute Lymphocyte Count 1.95 10^3/uL (1.2-3.4); Absolute Monocyte Count 1.18 10^3/uL (0.1-0.8); Absolute Neutrophil Count 4.82 10^3/uL (1.2-6.7); Eosinophils % 2.9; HCT 35.3 % (36.0-46.0); HGB 11.3 g/dL (11.2-15.7); Immature Grans % 0.1; Lymphocytes % 23.6; MCV 106 fL (80-95); MPV 10.5 fL (8.0-11.0); Monocytes % 14.3; Neutrophils % 58.1; Platelet Count 324 10^3/uL (130-400); RBC 3.32 10^6/uL (3.93-5.22); RDW 15.7 % (11.7-14.6); RDW-SD 61.1 fL; WBC 8.28 10^3/uL (4.4-10.8)
[2022-07-10 10:30] LABS: ALT 16 U/L (14-59); AST 25 U/L (15-37); Albumin 3.2 g/dL (3.4-5.0); Alkaline Phosphatase 77 U/L (46-116); Anion Gap 7.1 mmol/L (3-11); BUN 11 mg/dL (7-18); Bilirubin, Total 0.3 mg/dL (0.2-1.0); CO2 28.9 mmol/L (21.0-32.0); CREATININE 1.3 mg/dL (0.55-1.02); Calcium 9.3 mg/dL (8.5-10.1); Chloride 106 mmol/L (98-107); Estimated GFR 45.35 (mL/min/1.73m2); FREE T4 0.97 ng/dL (0.76-1.46); Glucose 96 mg/dL (74-106); Magnesium 2.1 mg/dL (1.8-2.4); Sodium 142 mmol/L (136-145); Total Protein 7.7 g/dL (6.4-8.2)
== END 2022-07-16 23:59 | disposition home or self-care (01) ==
LOC: INF 01:45
PROVIDERS: PCP Family Medicine; Visit Provider Internal Medicine Medical Oncology
DX: C34.32 Malignant neoplasm of lower lobe, left bronchus or lung (principal); Z45.2 Encounter for adjustment and management of vascular access device
CPT/HCPCS: 36591; 80053; 83735; 84439; 84443; 85025

== ENCOUNTER 2022-07-29 00:44 | Outpatient (RCR) | payer MEDICARE, SELFPAY ==
[2022-07-29] MEDS: Normal Saline Flush 10 ML SYR IVP (12:17)
[2022-07-29 12:27] LABS: Abs Immature Grans 0.03 10^3/uL (0.0-0.06); Absolute Basophil Count 0.05 10^3/uL (0.0-0.2); Absolute Eosinophil Count 0.18 10^3/uL (0.0-0.7); Absolute Lymphocyte Count 2.61 10^3/uL (1.2-3.4); Absolute Monocyte Count 1.08 10^3/uL (0.1-0.8); Absolute Neutrophil Count 4.26 10^3/uL (1.2-6.7); Basophils % 0.6; Eosinophils % 2.2; HCT 36.9 % (36.0-46.0); HGB 11.8 g/dL (11.2-15.7); Immature Grans % 0.4; Lymphocytes % 31.8; MCH 33.9 pg (27.0-33.0); MCV 106 fL (80-95); MPV 10.5 fL (8.0-11.0); Monocytes % 13.2; Neutrophils % 51.8; Platelet Count 286 10^3/uL (130-400); RBC 3.48 10^6/uL (3.93-5.22); RDW 16.2 % (11.7-14.6); RDW-SD 62.6 fL; WBC 8.21 10^3/uL (4.4-10.8)
[2022-07-29 12:39] LABS: Diff Comment RBC Morph Reviewed; Macrocytosis 2+
[2022-07-29 13:08] LABS: ALT 26 U/L (14-59); AST 25 U/L (15-37); Albumin 3.3 g/dL (3.4-5.0); Alkaline Phosphatase 61 U/L (46-116); Anion Gap 8.7 mmol/L (3-11); BUN 16 mg/dL (7-18); Bilirubin, Total 0.2 mg/dL (0.2-1.0); CO2 28.3 mmol/L (21.0-32.0); CREATININE 1.1 mg/dL (0.55-1.02); Calcium 9.2 mg/dL (8.5-10.1); Chloride 105 mmol/L (98-107); Estimated GFR 55.42 (mL/min/1.73m2); FREE T4 0.95 ng/dL (0.76-1.46); Glucose 133 mg/dL (74-106); Magnesium 1.9 mg/dL (1.8-2.4); Potassium 3.4 mmol/L (3.5-5.1); Sodium 142 mmol/L (136-145); TSH 1.79 uIU/mL (0.36-3.74)
== END 2022-08-13 23:59 | disposition home or self-care (01) ==
LOC: INF 00:44
PROVIDERS: PCP Family Medicine; Visit Provider Internal Medicine Medical Oncology
DX: C34.32 Malignant neoplasm of lower lobe, left bronchus or lung (principal); Z45.2 Encounter for adjustment and management of vascular access device
CPT/HCPCS: 36591; 80053; 83735; 84439; 84443; 85025

== ENCOUNTER 2022-09-09 02:13 | Outpatient (RCR) | payer MEDICARE, SELFPAY ==
[2022-08-19] MEDS: Normal Saline Flush 10 ML SYR IVP (12:07)
[2022-08-19 12:28] LABS: Abs Immature Grans 0.02 10^3/uL (0.0-0.06); Absolute Basophil Count 0.06 10^3/uL (0.0-0.2); Absolute Eosinophil Count 0.04 10^3/uL (0.0-0.7); Absolute Lymphocyte Count 0.93 10^3/uL (1.2-3.4); Absolute Monocyte Count 0.46 10^3/uL (0.1-0.8); Absolute Neutrophil Count 6.67 10^3/uL (1.2-6.7); Basophils % 0.7; Eosinophils % 0.5; HCT 38.2 % (36.0-46.0); HGB 12.4 g/dL (11.2-15.7); Immature Grans % 0.2; Lymphocytes % 11.4; MCH 34.3 pg (27.0-33.0); MCHC 32.5 % (32.0-36.0); MCV 106 fL (80-95); MPV 10.9 fL (8.0-11.0); Monocytes % 5.6; Neutrophils % 81.6; Platelet Count 288 10^3/uL (130-400); RBC 3.62 10^6/uL (3.93-5.22); RDW 17.1 % (11.7-14.6); RDW-SD 66.1 fL; WBC 8.18 10^3/uL (4.4-10.8)
[2022-08-19 12:46] LABS: ALT 28 U/L (14-59); AST 27 U/L (15-37); Albumin 3.5 g/dL (3.4-5.0); Alkaline Phosphatase 62 U/L (46-116); Anion Gap 8.9 mmol/L (3-11); BUN 14 mg/dL (7-18); Bilirubin, Total 0.3 mg/dL (0.2-1.0); CO2 27.1 mmol/L (21.0-32.0); CREATININE 1.1 mg/dL (0.55-1.02); Calcium 9.2 mg/dL (8.5-10.1); Chloride 105 mmol/L (98-107); Estimated GFR 55.42 (mL/min/1.73m2); Glucose 117 mg/dL (74-106); Magnesium 1.9 mg/dL (1.8-2.4); Potassium 4.1 mmol/L (3.5-5.1); Sodium 141 mmol/L (136-145); Total Protein 7.3 g/dL (6.4-8.2)
[2022-09-09] MEDS: Normal Saline Flush 10 ML SYR IVP (08:15)
[2022-09-09 08:18] LABS: Abs Immature Grans 0.03 10^3/uL (0.0-0.06); Absolute Basophil Count 0.07 10^3/uL (0.0-0.2); Absolute Eosinophil Count 0.17 10^3/uL (0.0-0.7); Absolute Lymphocyte Count 2.61 10^3/uL (1.2-3.4); Absolute Monocyte Count 1.53 10^3/uL (0.1-0.8); Absolute Neutrophil Count 5.02 10^3/uL (1.2-6.7); Basophils % 0.7; Eosinophils % 1.8; HCT 38.2 % (36.0-46.0); HGB 12.5 g/dL (11.2-15.7); Immature Grans % 0.3; Lymphocytes % 27.7; MCH 34.2 pg (27.0-33.0); MCHC 32.7 % (32.0-36.0); MCV 105 fL (80-95); MPV 10.6 fL (8.0-11.0); Monocytes % 16.2; Neutrophils % 53.3; Platelet Count 281 10^3/uL (130-400); RBC 3.65 10^6/uL (3.93-5.22); RDW 17.1 % (11.7-14.6); RDW-SD 66.1 fL; WBC 9.43 10^3/uL (4.4-10.8)
[2022-09-09 08:41] LABS: ALT 30 U/L (14-59); AST 28 U/L (15-37); Albumin 3.4 g/dL (3.4-5.0); Alkaline Phosphatase 63 U/L (46-116); Anion Gap 7.6 mmol/L (3-11); BUN 19 mg/dL (7-18); Bilirubin, Total 0.2 mg/dL (0.2-1.0); CO2 27.4 mmol/L (21.0-32.0); CREATININE 1.2 mg/dL (0.55-1.02); Calcium 9.1 mg/dL (8.5-10.1); Chloride 105 mmol/L (98-107); Estimated GFR 49.92 (mL/min/1.73m2); Glucose 98 mg/dL (74-106); Potassium 4.4 mmol/L (3.5-5.1); Sodium 140 mmol/L (136-145); Total Protein 7.1 g/dL (6.4-8.2)
[2022-09-09 08:47] LABS: Diff Comment Diff Reviewed; RBC Morphology Normal
== END 2022-09-13 23:59 | disposition home or self-care (01) ==
LOC: INF 02:13
PROVIDERS: PCP Family Medicine; Visit Provider Internal Medicine Medical Oncology
DX: C34.32 Malignant neoplasm of lower lobe, left bronchus or lung (principal); Z45.2 Encounter for adjustment and management of vascular access device
CPT/HCPCS: 36591; 80053; 83735; 85025

== ENCOUNTER 2022-10-08 01:22 | Outpatient (CLI) | payer MEDICARE, SELFPAY ==
--- NOTE | 2022-10-08 | DI.CT_ITS ---
Exam(s) CT CHEST/ABD/PEL W EXAM: CT CHEST/ABD/PEL W CLINICAL HISTORY: F/U CT 10/08/22,ADDITIONAL IMAGES,RESTAGING,METS TO LIVER,C78.7 TECHNIQUE: COMPARISON: CT CT ABDOMEN PELVIS CTA from 04/01/2022 FINDINGS: Apparently the patient has apparently now returned for additional contrast infused sequences of the l iver. The study of 10/08/2022 was apparently not dictated. Present dictation will combine both studie s. CHEST: Port-A-Cath: Right supra clavi in Port-A-Cath distal tip is in the SVC-RA junction. Lungs: There is para-infrahilar infiltrate in the left lower lobe evident on the 10/08/2022 images wh ich is suspicious for neoplasm. No associated pleural effusion. No significant findings in the left u pper lobe and lingular segment nor significant focal findings in the right lung. There is a benign-ap pearing thin walled valeria located posterior in the right lower lobe measuring 2.5 x 2.4 cm. No fluid l evel therein. Mediastinum: Small lymph nodes noted in the left hilum. No adenopathy in the aortopulmonic window nor in the subcarinal region. No right hilar adenopathy. No adenopathy in the anterior mediastinal fat. Nodules noted in the right thyroid lobe. Cardiac: Heart size is normal. Mild thickening of the anterior pericardium with maximum thickness 4 m m noted, consistent with small pericardial effusion. Caliber of the thoracic aorta is upper normal-3. 5 cm. No dissection. Osseous: No lytic osseous lesions. Sclerotic density noted in the posterior aspect of T10 vertebral body, measuring 1.7 cm wide by 0.9 cm AP by 1.6 cm cephalocaudal. No associated breakthrough of the p osterior cortex. Similar findings not seen in other vertebral bodies. No fractures. Degenerative anterolisthesis L5 upon S1. ABDOMEN: There is no ascites. Liver: There is a solitary hypodense lesion in the right hepatic lobe measuring 2.4 x 1.7 cm by 2 cm cephalocaudal. On the callback imaging of 10/15/2022 this does not exhibit internal nor centripetal e nhancement on multisequence imaging and is therefore most probably a benign cyst. Gallbladder/biliary: No gallstones evident. No gallbladder wall edema. CBD is not dilated. Pancreas: No significant pancreatic mass. Pancreatic duct is not dilated. No peripancreatic fluid col lections. Spleen: Spleen size normal. No splenic lesions. The splenic and portal veins are patent. Adrenals: Both limbs of the left adrenal gland are thickened. Minimal thickening of the right adrenal gland limbs. Kidneys: There is a benign cyst in the superior pole of the left kidney which measures 1.2 cm. No fur ther imaging of this finding required. Small cysts noted toward the inferior aspect of the right kidn ey. No solid renal masses. No calculi. No hydronephrosis. No hydroureter. Lymph nodes: No pxnsydzeqgexuqb-ikvz-xydczl adenopathy. Abdominal aorta: The abdominal aorta is atherosclerotic and there is a fusiform infrarenal abdominal aortic aneurysm with abundant mural thrombus and exhibiting maximum external diameter of 3.4 cm. The common iliac arteries are heavily calcified. 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 Anterior abdominal wall: There is a right paracentral hernia which contains part of the transverse co wendie. Prominent obstruction at this level. However, the oral contrast seems to have progressed to this level and not beyond. There is no evidence of small-bowel obstruction. PELVIS: GI: Intrapelvic small bowel loops are not dilated and there is no free fluid. There is extensive sigm oid diverticulosis. No obvious acute diverticulitis. Diverticuli in the descending colon also noted w ithout evidence of diverticulitis. No evidence of appendicitis. Urinary bladder: No mass. No radiopaque calculi. Reproductive: Uterus is surgically absent. No abnormal adnexal masses. No free fluid in the pelvis. Lymph nodes: There is no intrapelvic nor inguinal adenopathy. Osseous: Anterolisthesis L5 upon S1 related to facet arthropathy. No pars defects. No lytic osseous l esions evident. IMPRESSION: 1. Left infrahilar lower lobe infiltrate suspicious for neoplasm although exhibits somewhat different appearance from prior scan of 04/01/2022. If there is no diagnosis as of yet I recommend bronchoscop y. No pleural effusions. No other significant pulmonary findings. Small lymph nodes in left hilum. 2. The previously described hypodense lobulated lesion in the liver appears unchanged from the CT sca n of 10/08/2022 and although it does not exhibit obvious internal enhancement nor centripetal enhance ment on dynamic imaging, it does not exhibit Hounsfield units typical of a simple cyst. It also does not have the typical appearance of a metastatic lesion. Recommend follow-up ultrasound of this right hepatic lobe finding. 3. Atherosclerotic abdominal aorta with aneurysm maximum external diameter of 3.7 cm. Heavily calcifi ed common iliac arteries with aneurysm of left common iliac artery with diameter 1.7 cm and calcified intimal flap therein. 4. Anterior abdominal hernia which contains loop of transverse colon. Although there is no prominent transition point at this level, the oral contrast has progressed 2 but not beyond this level, possibl y coincidental but possible also indicating an element of functional obstruction at this level. The d istal transverse colon and left side of the colon beyond this level are not collapsed. There is also no evidence of small-bowel obstruction. 5. Sclerotic density in the posterior aspect of T10 vertebral body, nonexpansile and not associated w ith disruption of the posterior cortex of the T10 vertebral body. This area was not included on the a bdominal CT scan of March 2017. Recommend follow-up whole body nuclear bone scan.
[2022-10-08] MEDS: Barium Sulfate 2% W/V-Berry Smoothie 450 ML BTL 900 ML PO (11:24)
[2022-10-08] MEDS: Normal Saline - Diluent 50 ML VIAL IJ (11:32)
[2022-10-08] MEDS: Omnipaque 350 MG/ML 500 ML BTL-Imaging package IJ (11:33)
== END 2022-10-08 01:42 ==
PROVIDERS: PCP Family Medicine; Visit Provider Internal Medicine Medical Oncology
DX: C34.32 Malignant neoplasm of lower lobe, left bronchus or lung (principal); C78.7 Secondary malignant neoplasm of liver and intrahepatic bile duct; C79.51 Secondary malignant neoplasm of bone
CPT/HCPCS: 74177; 71260

== ENCOUNTER 2022-10-08 02:17 | Outpatient (RCR) | payer MEDICARE, SELFPAY ==
[2022-09-30] MEDS: Normal Saline Flush 10 ML SYR IVP (12:22)
[2022-09-30 12:39] LABS: Abs Immature Grans 0.04 10^3/uL (0.0-0.06); Absolute Basophil Count 0.06 10^3/uL (0.0-0.2); Absolute Eosinophil Count 0.18 10^3/uL (0.0-0.7); Absolute Lymphocyte Count 1.92 10^3/uL (1.2-3.4); Absolute Monocyte Count 1.19 10^3/uL (0.1-0.8); Basophils % 0.6; Eosinophils % 1.8; HCT 35.5 % (36.0-46.0); HGB 11.8 g/dL (11.2-15.7); Immature Grans % 0.4; Lymphocytes % 18.8; MCH 35.5 pg (27.0-33.0); MCHC 33.2 % (32.0-36.0); MCV 107 fL (80-95); MPV 10.2 fL (8.0-11.0); Monocytes % 11.7; Neutrophils % 66.7; Platelet Count 286 10^3/uL (130-400); RBC 3.32 10^6/uL (3.93-5.22); RDW 17.9 % (11.7-14.6); WBC 10.19 10^3/uL (4.4-10.8)
[2022-09-30 13:05] LABS: ALT 24 U/L (14-59); AST 23 U/L (15-37); Alkaline Phosphatase 58 U/L (46-116); Anion Gap 6.7 mmol/L (3-11); BUN 18 mg/dL (7-18); Bilirubin, Total 0.3 mg/dL (0.2-1.0); CO2 28.3 mmol/L (21.0-32.0); CREATININE 1.2 mg/dL (0.55-1.02); Calcium 8.9 mg/dL (8.5-10.1); Chloride 104 mmol/L (98-107); Estimated GFR 49.92 (mL/min/1.73m2); Glucose 135 mg/dL (74-106); Magnesium 1.8 mg/dL (1.8-2.4); Potassium 4.1 mmol/L (3.5-5.1); Sodium 139 mmol/L (136-145)
[2022-10-08] MEDS: Normal Saline Flush 10 ML SYR IVP (08:43)
[2022-10-08] MEDS: Heparin 500 UNITS/5 ML SYRINGE IV (08:44)
== END 2022-10-13 23:59 | disposition home or self-care (01) ==
LOC: INF 02:17
PROVIDERS: PCP Family Medicine; Visit Provider Internal Medicine Medical Oncology
DX: C34.32 Malignant neoplasm of lower lobe, left bronchus or lung (principal); Z45.2 Encounter for adjustment and management of vascular access device
CPT/HCPCS: 36591; 80053; 96523; 83735; 85025

== ENCOUNTER 2022-10-21 10:42 | Emergency (ER) | payer MEDICARE, SELFPAY ==
--- NOTE | 2022-10-21 10:45 | RT.EKG_ITS ---
APPROVED REPORT Exam: Resting ECG Reason for Exam: sob Patient Location: E HR:100 bpm ECG Measurements Heart Rate 100 AXIS GA 150 P 73 QRSd 70 QRS 26 QT 329 T 52 QTc 425 Conclusion Sinus tachycardia...rate> 99 Low voltage, precordial leads...precordial leads <1.0mV Narrow complex normal sinus rhythm narrow complex sinus tachycardia at a rate of 100. Normal axis. Intervals within normal limits. No ST segment abnormalities. No T wave inversions. Difficult to in terpret baseline in V5. Low voltage. No prior for comparison.
--- NOTE | 2022-10-21 10:46 | ED.GENADUL_ITS ---
Discharge Plan Disposition Patient Disposition: Against Medical Advice Discharge Details Clinical Impression: Breath shortness Primary Care Provider: Joon Campos ED Provider: Zay Lopez [place] Meds and New Rx's Prescriptions: Continued cyclobenzaprine 10 MG tablet 10 mg PO Q8H PRN PRN fluticasone propion-salmeterol [Advair Diskus] 1 PUFF blister with device 1 puff Inhalation BID omeprazole 40 MG capsule,delayed release(DR/EC) 40 mg PO DAILY lidocaine [Lidoderm] 1 PATCH adhesive patch,medicated 1 patch Topical DAILY Patient Comments: 06/02/13 1 patch tp daily for no more than 12hours per MD.06/10/13 pt hasnot filled yet gabapentin 300 MG capsule 300 mg PO TID albuterol sulfate [Ventolin HFA] 200 PUFF HFA aerosol inhaler 2 puff Inhalation Q4H PRN PRN multivitamin 1 EACH capsule 1 cap PO DAILY tizanidine 2 mg capsule 2 cap PO PRN PRN (Reason: Pain) Patient Comments: TAKE 1 TO 2 CAPSULES BY MOUTH TWICE DAILY NEEDED FOR PAIN atorvastatin 40 mg tablet 1 tab QPM Patient Comments: TAKE 1 TABLET BY MOUTH ONCE DAILY meloxicam 15 mg tablet 1 tab QAM Patient Comments: TAKE 1 TABLET BY MOUTH ONCE DAILY NEEDED lisinopril 20 mg tablet 20 mg QAM Patient Comments: TAKE 1 TABLET BY MOUTH ONCE DAILY lisinopril 20 mg tablet 1 tab QAM Patient Comments: TAKE 1 TABLET BY MOUTH ONCE DAILY fluticasone propion-salmeterol [Advair Diskus] 500-50 mcg/dose blister with device 1 ea INHALATION QAM Patient Comments: INHALE 1 DOSE BY MOUTH EVERY 12 HOURS gabapentin 300 mg capsule 300 mg PRN PRN Patient Comments: TAKE 2 CAPSULES BY MOUTH IN THE MORNING AND 1 AT NOON AND 4 AT BEDTIME montelukast 10 mg tablet 1 tab QPM Patient Comments: TAKE 1 TABLET BY MOUTH ONCE DAILY FOR ALLERGIES albuterol sulfate 90 mcg/actuation HFA aerosol inhaler 2 puff INHALATION PRN PRN Patient Comments: INHALE 2 PUFFS BY MOUTH EVERY 4 HOURS NEEDED FOR WHEEZING /COUGH Spiriva Respimat 2.5 mcg/actuation mist 1 spray INHALATION DAILY Patient Comments: INHALE 2 SPRAY(S) BY MOUTH ONCE DAILY mecobalamin (vitamin B12) [B12 Active] 1,000 mcg Tablet,Chewable 1,000 mcg PO QAM Discharge Instructions Instructions: Dyspnea (ED) Additional Instructions: You were seen in the emergency department for your shortness of breath. Your x- ray showed no sign of pneumonia. Your labs had not returned. You elected to leave before your evaluation was completed. As we discussed there is a risk of you having a heart attack, problems with your kidneys, or a blood clot in your lungs. These diagnoses could result in your or permanent disability. If you do not feel well or wish to continue your emergency department evaluation please return anytime. Discharge Data Discharge Date/Time-TO BE ENTERED AT DEPARTURE: 10/21/22 13:52 Medical Decision Making This is a normothermic and and mildly tachycardic 67-year-old female with primary malignant neoplasm of the left lower lung now with shortness of breath and chest pain concerning for multiple etiologies. Patient has had pain going on for several days primarily in her left lower chest. It is not a squeezing sensation she has no history of coronary artery disease. Given the duration of time since her symptoms began and her nonischemic ECG and her lack of risk factors for coronary artery disease will obtain a single troponin and if this is negative will be reassured against ACS. No hypotension and only mildly tachycardic so doubt tamponade. Equal breath sounds reassuring against pneumothorax. No increased sputum production nor any purulent sputum and no fevers so doubt pneumonia. Daily tobacco use but no history of COPD and no wheezes to suggest bronchospasm. Will order a D-dimer to assess for PE. Given patient's malignancy she is high risk for PE. She does report that she has had allergic reactions to IV contrast in the past. Given her history of lung cancer I do not feel that she will be an appropriate candidate for a VQ scan as I do not anticipate that she will have a normal chest x-ray. If her D-dimer is elevated will discuss with patient possibility of treating with enoxaparin. No rash to chest to suggest zoster. No tearing quality to suggest aortic dissection. No history of trauma and equal breath sounds without pneumothorax. Will assess labs to assess for any acute electrolyte abnormalities. No recent vomiting to suggest increased risk for esophageal rupture. Will reassess following labs and imaging. Given history of malignancy bony metastases are also a possibility.CT scan from last week did show an atherosclerotic abdominal aortic aneurysm with a maximal diameter of 3.7 cm. Patient is having no abdominal pain to suggest ruptured AAA. Patient does have a sclerotic density in her T10 vertebral body for which radiology recommended a whole-body nuclear medicine scan. Given that her chest pain began after her contrast infusion last week contrast reaction certainly possibility. There is no signs of anaphylaxis so no indication for epinephrine. Given no wheezes will defer steroids at this point time.Given no obviously acute rash no indication for topical steroids at this point time. 1:15 PM Chest x-ray with no obvious infiltrate. CBC showing leukocytosis but no anemia and no thrombocytopenia. Leukocytosis more pronounced compared to prior. 2:05 PM Patient wanted to leave the emergency department. 1. I explained the current situation and condition to the patient. 2. I explained the recommended treatment for this condition -Labs including D- dimer with possibility of anticoagulation 3. I explained the risk of not having the recommended treatment -renal failure pulmonary embolism and acute electrolyte abnormalities 4. The patient understands this information has no questions, and repeated back this information. 5. The patient states that they need to leave and will return if their symptoms worsened 6. Mental status is lucid and the patient has decision-making capacity. 7. Patient is has intact decision-making capacity. Patient will return if she feels worse. D-dimer returned markedly positive. I called the patient's number listed in her chart. Unfortunately she did not answer. I advised her of her positive test results and I advised ED return for reassessment. At the time of discharge her tachycardia had resolved without intervention and she was normotensive and not tachycardic. 2:45 AM Basic metabolic panel with no FERNANDO but CKD. Negative troponin. 10/22 I have asked health unit assistant Sury to follow-up on this patient to have her reassessed by her primary care within the next week. Chronic conditions affecting the care of the patient: Lung malignancy History obtained from an outside historian: N/A External record review: [facility] [place] Diagnostic interpretations performed by me: No acute cardiopulmonary process [Per my independent interpretation EKG shows:] Narrow complex normal sinus rhythm narrow complex sinus tachycardia at a rate of 100. Normal axis. Intervals within normal limits. No ST segment abnormalities. No T wave inversions. Difficult to interpret baseline in V5. L ow voltage. No prior for comparison. Medications: Prednisone doxycycline Social determinants of health affecting disposition: N/A Management discussed with: N/A Treatment/interventions considered: Hospitalization however patient felt improved Response to therapies provided: [place] improved following nebulization HPI General Date/Time Provider Initiated Documentation: 10/21/22 10:46 . HPI Narrative: This is a 67-year-old female with a history of primary lung cancer now in the emergency department in the setting of shortness of breath. Patient reports that she had a CAT scan last week with IV contrast and subsequently developed a rash. She has intermittently had shortness of breath since then. She also notes that she has had a cough productive of green sputum. She has left-sided chest pain and upper back pain with inspiration since then. She is concerned about possibility of a pneumonia. She has not taken any recent falls. She is due to have chemotherapy later today. She denies history of PE and DVT. She is a daily tobacco user but denies routine ethanol and illicits. She has had no nausea vomiting or abdominal pain. She has had no recent fevers. She has no history of coronary artery disease. She mentions a rash at triage but denies any rash to me at the moment. Related Data Home Medications Medication Instructions Recorded Confirmed albuterol sulfate 90 mcg/actuation 2 puff inhalation Q4H PRN PRN 06/02/13 10/21/22 aerosol inhaler (Ventolin HFA) cyclobenzaprine 10 mg tablet 10 mg PO Q8H PRN PRN 06/02/13 10/21/22 fluticasone 250 mcg-salmeterol 50 1 puff inhalation BID 06/02/13 10/21/22 mcg/dose blistr powdr for inhalation (Advair Diskus) gabapentin 300 mg capsule 300 mg PO TID 06/02/13 10/21/22 lidocaine 5 % topical patch 1 patch topical DAILY 06/02/13 10/21/22 (Lidoderm) multivitamin 1 cap PO DAILY 06/02/13 10/21/22 omeprazole 40 mg capsule,delayed 40 mg PO DAILY 06/02/13 10/21/22 release albuterol sulfate 90 mcg/actuation 2 puff inhalation PRN PRN 04/01/22 10/21/22 aerosol inhaler atorvastatin 40 mg tablet 1 tab QPM 04/01/22 10/21/22 fluticasone 500 mcg-salmeterol 50 1 ea inhalation QAM 04/01/22 10/21/22 mcg/dose blistr powdr for inhalation (Advair Diskus) gabapentin 300 mg capsule 300 mg PRN PRN 04/01/22 10/21/22 lisinopril 20 mg tablet 1 tab QAM 04/01/22 10/21/22 lisinopril 20 mg tablet 20 mg QAM 04/01/22 10/21/22 mecobalamin (vitamin B12) 1,000 1,000 mcg PO QAM 04/01/22 10/21/22 mcg chewable tablet (B12 Active) meloxicam 15 mg tablet 1 tab QAM 04/01/22 10/21/22 montelukast 10 mg tablet 1 tab QPM 04/01/22 10/21/22 tiotropium bromide 2.5 1 spray inhalation DAILY 04/01/22 10/21/22 mcg/actuation mist for inhalation (Spiriva Respimat) tizanidine 2 mg capsule 2 cap PO PRN PRN Pain 04/01/22 10/21/22 Allergies Allergy/AdvReac Type Severity Reaction Status Date / Time bee venom protein (honey bee) Allergy Severe Unverified 04/01/22 14:57 codeine Allergy Severe severe Unverified 06/10/13 09:19 vomiting morphine Allergy Severe vomiting Unverified 06/10/13 09:19 Penicillins Allergy Intermediate Hives Unverified 06/10/13 09:19 tramadol HCl [From Ultram] Allergy Intermediate Hives Unverified 06/10/13 09:19 General CITLALY: 3 PFSH All Active Problems (Updated 10/21/22 @ 13:45 by Zay Lopez MD) Breath shortness (Acute) Social History Smoking/Tobacco Use Status: Current every day Tobacco Type: cigarettes Tobacco: How many years used: 50 Smoking risk assessment performed?: Yes Alcohol Intake: current Alcohol Intake frequency: holidays/special occasions only Alcohol type: wine and hard liquor Drug use: Never Do you feel safe at home: Yes Do you feel safe in your relationship?: Yes Exam Narrative Exam Narrative: General: Well-appearing in no acute distress speaking in complete sentences. Head: Normocephalic, atraumatic. Eye: Pupils equal, round reactive to light. Extraocular eye movements intact. No conjunctival injection. No scleral icterus. Ear, nose, mouth, throat: Grossly normal inspection. Normal voice, handling secretions normally. Neck: Trachea midline. Cardiovascular: Well-perfused distal extremities. Regular rate and rhythm. Respiratory: Nonlabored respiration. Decreased breath sounds bilateral bases. No wheezes. No respiratory distress. Gastrointestinal: Nondistended abdomen. Musculoskeletal: No edema. Moving all 4 extremities spontaneously. Skin: Normal for age and race, grossly normal temperature and turgor. No obviously acute rash. Neurologic: Alert and appropriate, no apparent acute deficits. Psychiatric: Mood and manner are appropriate. Grooming and personal hygiene are appropriate.
[2022-10-21 10:47] VITALS: BP 142/75; PULSE 100; RESP 18; TEMP 37.1; O2SAT 98
--- NOTE | 2022-10-21 11:00 | DI.RAD_ITS ---
Exam(s) XR CHEST 2V PA LATERAL EXAM: XR CHEST 2V PA LATERAL CLINICAL HISTORY: Shortness of breath TECHNIQUE: 2D digital imaging was performed. COMPARISON: CT CT CHEST/ABD/PEL W from 10/08/[address] ABDOMEN W from 10/15/2022 FINDINGS: HEART: Normal size. Aorta: Not dilated. PULMONARY VASCULATURE: Normal. LUNGS: Area of scarring lateral to left hilum. No definite mass visible. Underlying emphysematous a nd fibrotic changes. No acute infiltrate. PLEURAL SPACE: No pleural effusion or pneumothorax. BONE:Scoliosis and degenerative changes. No compression fractures. IMPRESSION: No acute abnormality. DATA REPOSITORY: RADIATION DOSE DELIVERED:
[2022-10-21 11:21] VITALS: BP 121/67; PULSE 91; O2SAT 96
[2022-10-21 11:31] VITALS: BP 116/68; PULSE 90; O2SAT 95
[2022-10-21 12:31] LABS: Abs Immature Grans 0.86 10^3/uL (0.0-0.06); Absolute Basophil Count 0.23 10^3/uL (0.0-0.2); Absolute Neutrophil Count 8.66 10^3/uL (1.2-6.7); Basophils % 1.5; HCT 33.7 % (36.0-46.0); HGB 11.2 g/dL (11.2-15.7); Immature Grans % 5.6; Lymphocytes % 19.7; MCH 35.6 pg (27.0-33.0); MCHC 33.2 % (32.0-36.0); MCV 107 fL (80-95); MPV 10.7 fL (8.0-11.0); Neutrophils % 56.2; Platelet Count 283 10^3/uL (130-400); RBC 3.15 10^6/uL (3.93-5.22); RDW 17.8 % (11.7-14.6); RDW-SD 69.4 fL; WBC 15.41 10^3/uL (4.4-10.8)
[2022-10-21 12:35] LABS: Absolute Eosinophil Count 0.92 10^3/uL (0.0-0.7); Absolute Lymphocyte Count 3.04 10^3/uL (1.2-3.4)
[2022-10-21 12:45] LABS: Diff Comment Diff Reviewed; Macrocytosis 2+
[2022-10-21 13:27] VITALS: BP 135/80; PULSE 83; O2SAT 95
[2022-10-21 13:53] LABS: D-Dimer 5235 ng/mlFEU (<500)
--- NOTE | 2022-10-21 13:55 | NUR.NOTE ---
Nursing Note: Pt discharged AMA by staff. Pt states she has an appointment at the cancer center. This leader writer not present at the time of AMA discharge. Pt left with port accessed (normally done in infusion center) then pt receives chemo (as relayed by pt) at the cancer center.
[2022-10-21 14:41] LABS: Anion Gap 6.9 mmol/L (3-11); BUN 15 mg/dL (7-18); CO2 28.1 mmol/L (21.0-32.0); CREATININE 1.2 mg/dL (0.55-1.02); Calcium 9.4 mg/dL (8.5-10.1); Chloride 107 mmol/L (98-107); Estimated GFR 49.92 (mL/min/1.73m2); Glucose 104 mg/dL (74-106); Potassium 4.2 mmol/L (3.5-5.1); Sodium 142 mmol/L (136-145); Troponin I < 50 ng/L (<or=60)
--- NOTE | 2022-10-22 17:38 | NUR.NOTE ---
Nursing Note: Referral given to Care Management to follow up with PCP for SOB/ next week.
--- NOTE | 2022-10-23 14:31 | PDOC.CMACT ---
Date of service: 10/23/22 Time of Service: 14:31 Care Management Activity Note Activity Note Text Activity Note Text: Aydee is seen in the ED for shortness of breath. At the request of ED provider, CM contacts Aydee's PCP, Dr. Joon Campos, via fax to request they outreach to Aydee to schedule a follow up appointment.
== END 2022-10-21 13:52 | disposition left against medical advice (07) ==
PROVIDERS: Emergency Provider Emergency Medicine; PCP Family Medicine
DX: R06.02 Shortness of breath (principal); R07.9 Chest pain, unspecified; C34.32 Malignant neoplasm of lower lobe, left bronchus or lung; Z53.29 Procedure and treatment not carried out because of patient's decision for other reasons
CPT/HCPCS: 80048; 93005; 99283; 71046; 84484; 85025; 85379; 93010; 99284

== ENCOUNTER 2022-10-28 01:54 | Outpatient (RCR) | payer MEDICARE, SELFPAY ==
[2022-10-15] MEDS: Normal Saline Flush 10 ML SYR IVP (11:07)
[2022-10-15] MEDS: Heparin 500 UNITS/5 ML SYRINGE IV (11:08)
[2022-10-21 13:33] LABS: ALT 14 U/L (14-59); AST 17 U/L (15-37); Albumin 2.7 g/dL (3.4-5.0); Alkaline Phosphatase 68 U/L (46-116); Anion Gap 7.1 mmol/L (3-11); BUN 15 mg/dL (7-18); Bilirubin, Total 0.2 mg/dL (0.2-1.0); CO2 27.9 mmol/L (21.0-32.0); CREATININE 1.1 mg/dL (0.55-1.02); Calcium 9.5 mg/dL (8.5-10.1); Chloride 106 mmol/L (98-107); Estimated GFR 55.42 (mL/min/1.73m2); FREE T4 1.11 ng/dL (0.76-1.46); Glucose 100 mg/dL (74-106); Magnesium 1.9 mg/dL (1.8-2.4); Potassium 4.1 mmol/L (3.5-5.1); Sodium 141 mmol/L (136-145); TSH 4.44 uIU/mL (0.36-3.74); Total Protein 6.9 g/dL (6.4-8.2)
== END 2022-11-13 23:59 | disposition home or self-care (01) ==
LOC: INF 01:54
PROVIDERS: Nurse Practitioner Family; PCP Family Medicine; Visit Provider Internal Medicine Medical Oncology
DX: C34.32 Malignant neoplasm of lower lobe, left bronchus or lung (principal); Z45.2 Encounter for adjustment and management of vascular access device
CPT/HCPCS: 80053; 96523; 83735; 84439; 84443

== ENCOUNTER 2022-12-11 02:20 | Outpatient (RCR) | payer MEDICARE, SELFPAY ==
[2022-11-18] MEDS: Normal Saline Flush 10 ML SYR IVP (12:32)
[2022-11-18 12:42] LABS: Abs Immature Grans 0.03 10^3/uL (0.0-0.06); Absolute Basophil Count 0.04 10^3/uL (0.0-0.2); Absolute Eosinophil Count 0.04 10^3/uL (0.0-0.7); Absolute Lymphocyte Count 0.92 10^3/uL (1.2-3.4); Absolute Monocyte Count 0.36 10^3/uL (0.1-0.8); Absolute Neutrophil Count 7.14 10^3/uL (1.2-6.7); Basophils % 0.5; Eosinophils % 0.5; HCT 37.2 % (36.0-46.0); HGB 12.1 g/dL (11.2-15.7); Immature Grans % 0.4; Lymphocytes % 10.8; MCH 36.6 pg (27.0-33.0); MCHC 32.5 % (32.0-36.0); MCV 112 fL (80-95); Monocytes % 4.2; Neutrophils % 83.6; Platelet Count 260 10^3/uL (130-400); RBC 3.31 10^6/uL (3.93-5.22); RDW 16.6 % (11.7-14.6); WBC 8.53 10^3/uL (4.4-10.8)
[2022-11-18 12:51] LABS: Diff Comment Diff Reviewed; Macrocytosis 2+
[2022-11-18 13:07] LABS: ALT 24 U/L (14-59); AST 24 U/L (15-37); Albumin 3.3 g/dL (3.4-5.0); Alkaline Phosphatase 65 U/L (46-116); Anion Gap 6.2 mmol/L (3-11); BUN 22 mg/dL (7-18); Bilirubin, Total 0.3 mg/dL (0.2-1.0); CO2 26.8 mmol/L (21.0-32.0); CREATININE 1.4 mg/dL (0.55-1.02); Calcium 8.7 mg/dL (8.5-10.1); Chloride 103 mmol/L (98-107); Estimated GFR 41.49 (mL/min/1.73m2); FREE T4 1.08 ng/dL (0.76-1.46); Glucose 132 mg/dL (74-106); Potassium 3.9 mmol/L (3.5-5.1); Sodium 136 mmol/L (136-145); TSH 0.89 uIU/mL (0.36-3.74); Total Protein 7.4 g/dL (6.4-8.2)
[2022-12-11] MEDS: Normal Saline Flush 10 ML SYR IVP (09:39)
[2022-12-11 10:27] LABS: Abs Immature Grans 0.03 10^3/uL (0.0-0.06); Absolute Basophil Count 0.07 10^3/uL (0.0-0.2); Absolute Eosinophil Count 0.17 10^3/uL (0.0-0.7); Absolute Lymphocyte Count 1.01 10^3/uL (1.2-3.4); Absolute Monocyte Count 0.64 10^3/uL (0.1-0.8); Absolute Neutrophil Count 5.18 10^3/uL (1.2-6.7); Eosinophils % 2.4; HCT 37.2 % (36.0-46.0); HGB 12.2 g/dL (11.2-15.7); Immature Grans % 0.4; Lymphocytes % 14.2; MCH 36.5 pg (27.0-33.0); MCHC 32.8 % (32.0-36.0); MCV 111 fL (80-95); MPV 10.5 fL (8.0-11.0); Platelet Count 264 10^3/uL (130-400); RBC 3.34 10^6/uL (3.93-5.22); RDW 15.7 % (11.7-14.6); RDW-SD 64.2 fL
[2022-12-11 11:00] LABS: ALT 24 U/L (14-59); AST 27 U/L (15-37); Albumin 3.2 g/dL (3.4-5.0); Alkaline Phosphatase 60 U/L (46-116); BUN 12 mg/dL (7-18); Bilirubin, Total 0.4 mg/dL (0.2-1.0); CREATININE 1.1 mg/dL (0.55-1.02); Calcium 8.7 mg/dL (8.5-10.1); Chloride 104 mmol/L (98-107); Estimated GFR 55.42 (mL/min/1.73m2); FREE T4 1.23 ng/dL (0.76-1.46); Glucose 99 mg/dL (74-106); Magnesium 2.2 mg/dL (1.8-2.4); Potassium 4.2 mmol/L (3.5-5.1); Sodium 140 mmol/L (136-145); Total Protein 7.4 g/dL (6.4-8.2)
== END 2022-12-13 23:59 | disposition home or self-care (01) ==
LOC: INF 02:20
PROVIDERS: PCP Family Medicine; Visit Provider Internal Medicine Medical Oncology
DX: Z79.899 Other long term (current) drug therapy (principal); C34.32 Malignant neoplasm of lower lobe, left bronchus or lung; Z45.2 Encounter for adjustment and management of vascular access device
CPT/HCPCS: 36591; 80053; 83735; 84439; 84443; 85025

== ENCOUNTER 2023-01-06 04:00 | Outpatient (RCR) | payer MEDICARE, SELFPAY ==
[2023-01-06] MEDS: Normal Saline Flush 10 ML SYR IVP (12:24)
[2023-01-06 12:39] LABS: Abs Immature Grans 0.02 10^3/uL (0.0-0.06); Absolute Basophil Count 0.09 10^3/uL (0.0-0.2); Absolute Eosinophil Count 0.34 10^3/uL (0.0-0.7); Absolute Lymphocyte Count 2.49 10^3/uL (1.2-3.4); Absolute Monocyte Count 0.91 10^3/uL (0.1-0.8); Absolute Neutrophil Count 4.11 10^3/uL (1.2-6.7); Basophils % 1.1; Eosinophils % 4.3; HCT 36.6 % (36.0-46.0); HGB 12.1 g/dL (11.2-15.7); Immature Grans % 0.3; Lymphocytes % 31.3; MCH 36.8 pg (27.0-33.0); MCHC 33.1 % (32.0-36.0); MCV 111 fL (80-95); MPV 10.9 fL (8.0-11.0); Monocytes % 11.4; Neutrophils % 51.6; Platelet Count 200 10^3/uL (130-400); RBC 3.29 10^6/uL (3.93-5.22); RDW 14.8 % (11.7-14.6); RDW-SD 61.1 fL; WBC 7.96 10^3/uL (4.4-10.8)
[2023-01-06 13:02] LABS: ALT 12 U/L (14-59); AST 22 U/L (15-37); Albumin 2.7 g/dL (3.4-5.0); Alkaline Phosphatase 66 U/L (46-116); Anion Gap 5.1 mmol/L (3-11); BUN 12 mg/dL (7-18); Bilirubin, Total 0.2 mg/dL (0.2-1.0); CO2 28.9 mmol/L (21.0-32.0); CREATININE 1.3 mg/dL (0.55-1.02); Calcium 8.5 mg/dL (8.5-10.1); Chloride 107 mmol/L (98-107); Estimated GFR 45.35 (mL/min/1.73m2); FREE T4 1.03 ng/dL (0.76-1.46); Glucose 81 mg/dL (74-106); Magnesium 2.1 mg/dL (1.8-2.4); Potassium 4.5 mmol/L (3.5-5.1); Sodium 141 mmol/L (136-145); Total Protein 6.8 g/dL (6.4-8.2)
== END 2023-01-13 23:59 | disposition home or self-care (01) ==
LOC: INF 04:00
PROVIDERS: Nurse Practitioner Family; PCP Family Medicine; Visit Provider Internal Medicine Medical Oncology
DX: Z79.899 Other long term (current) drug therapy (principal); C34.32 Malignant neoplasm of lower lobe, left bronchus or lung; Z45.2 Encounter for adjustment and management of vascular access device
CPT/HCPCS: 36591; 80053; 83735; 84439; 84443; 85025

== ENCOUNTER 2023-01-27 03:39 | Outpatient (RCR) | payer MEDICARE, SELFPAY ==
[2023-01-27] MEDS: Normal Saline Flush 10 ML SYR IVP (12:17)
[2023-01-27 12:35] LABS: Abs Immature Grans 0.02 10^3/uL (0.0-0.06); Absolute Basophil Count 0.05 10^3/uL (0.0-0.2); Absolute Eosinophil Count 0.21 10^3/uL (0.0-0.7); Absolute Lymphocyte Count 2.31 10^3/uL (1.2-3.4); Absolute Monocyte Count 1.04 10^3/uL (0.1-0.8); Absolute Neutrophil Count 3.93 10^3/uL (1.2-6.7); Basophils % 0.7; Eosinophils % 2.8; HCT 35.6 % (36.0-46.0); HGB 11.8 g/dL (11.2-15.7); Immature Grans % 0.3; Lymphocytes % 30.6; MCH 36.4 pg (27.0-33.0); MCHC 33.1 % (32.0-36.0); MCV 110 fL (80-95); MPV 10.5 fL (8.0-11.0); Monocytes % 13.8; Neutrophils % 51.8; Platelet Count 325 10^3/uL (130-400); RBC 3.24 10^6/uL (3.93-5.22); RDW-SD 59.1 fL; WBC 7.56 10^3/uL (4.4-10.8)
[2023-01-27 13:02] LABS: ALT 11 U/L (14-59); AST 19 U/L (15-37); Albumin 2.7 g/dL (3.4-5.0); Alkaline Phosphatase 71 U/L (46-116); BUN 14 mg/dL (7-18); Bilirubin, Total 0.2 mg/dL (0.2-1.0); CREATININE 1.3 mg/dL (0.55-1.02); Chloride 106 mmol/L (98-107); Estimated GFR 45.35 (mL/min/1.73m2); FREE T4 1.14 ng/dL (0.76-1.46); Glucose 103 mg/dL (74-106); Potassium 3.9 mmol/L (3.5-5.1); Sodium 141 mmol/L (136-145); TSH 1.81 uIU/mL (0.36-3.74)
== END 2023-02-13 23:59 | disposition home or self-care (01) ==
LOC: INF 03:39
PROVIDERS: Nurse Practitioner Family; PCP Family Medicine; Visit Provider Internal Medicine Medical Oncology
DX: C34.32 Malignant neoplasm of lower lobe, left bronchus or lung (principal); Z79.899 Other long term (current) drug therapy; Z45.2 Encounter for adjustment and management of vascular access device
CPT/HCPCS: 36591; 80053; 83735; 84439; 84443; 85025

== ENCOUNTER 2023-03-10 01:52 | Outpatient (RCR) | payer MEDICARE, SELFPAY ==
[2023-02-20] MEDS: Normal Saline Flush 10 ML SYR IVP (12:12)
[2023-02-20 12:34] LABS: Abs Immature Grans 0.02 10^3/uL (0.0-0.06); Absolute Basophil Count 0.07 10^3/uL (0.0-0.2); Absolute Eosinophil Count 0.28 10^3/uL (0.0-0.7); Absolute Monocyte Count 1.24 10^3/uL (0.1-0.8); Absolute Neutrophil Count 3.62 10^3/uL (1.2-6.7); Basophils % 0.9; Eosinophils % 3.7; HCT 35.3 % (36.0-46.0); HGB 11.7 g/dL (11.2-15.7); Immature Grans % 0.3; Lymphocytes % 30.5; MCH 36.2 pg (27.0-33.0); MCHC 33.1 % (32.0-36.0); MCV 109 fL (80-95); MPV 10.5 fL (8.0-11.0); Monocytes % 16.5; Neutrophils % 48.1; Platelet Count 282 10^3/uL (130-400); RBC 3.23 10^6/uL (3.93-5.22); RDW 16.2 % (11.7-14.6); RDW-SD 64.7 fL; WBC 7.53 10^3/uL (4.4-10.8)
[2023-02-20 12:52] LABS: ALT 13 U/L (14-59); AST 21 U/L (15-37); Albumin 2.7 g/dL (3.4-5.0); Alkaline Phosphatase 73 U/L (46-116); Anion Gap 6.8 mmol/L (3-11); BUN 12 mg/dL (7-18); Bilirubin, Total 0.3 mg/dL (0.2-1.0); CO2 28.2 mmol/L (21.0-32.0); CREATININE 1.3 mg/dL (0.55-1.02); Calculated LDL 84 mg/dL (<100); Chloride 103 mmol/L (98-107); Cholesterol 161 mg/dL (<200); Estimated GFR 45.35 (mL/min/1.73m2); Glucose 81 mg/dL (74-106); HDL Cholesterol 55 mg/dL (40-60); Potassium 4.4 mmol/L (3.5-5.1); Sodium 138 mmol/L (136-145); TSH 2.03 uIU/mL (0.36-3.74); Triglyceride 112 mg/dL (<150)
[2023-02-20 13:23] LABS: FREE T4 1.09 ng/dL (0.76-1.46)
[2023-03-10] MEDS: Normal Saline Flush 10 ML SYR IVP (12:13)
[2023-03-10 12:44] LABS: Abs Immature Grans 0.03 10^3/uL (0.0-0.06); Absolute Basophil Count 0.02 10^3/uL (0.0-0.2); Absolute Eosinophil Count 0.24 10^3/uL (0.0-0.7); Absolute Lymphocyte Count 2.05 10^3/uL (1.2-3.4); Absolute Neutrophil Count 3.76 10^3/uL (1.2-6.7); Basophils % 0.3; Eosinophils % 3.2; HCT 32.2 % (36.0-46.0); HGB 10.8 g/dL (11.2-15.7); Immature Grans % 0.4; MCH 36.5 pg (27.0-33.0); MCHC 33.5 % (32.0-36.0); MCV 109 fL (80-95); MPV 10.7 fL (8.0-11.0); Monocytes % 19.7; Neutrophils % 49.4; Platelet Count 330 10^3/uL (130-400); RBC 2.96 10^6/uL (3.93-5.22); RDW 17.6 % (11.7-14.6); RDW-SD 67.9 fL
[2023-03-10 12:51] LABS: ALT 13 U/L (14-59); AST 23 U/L (15-37); Albumin 2.6 g/dL (3.4-5.0); Alkaline Phosphatase 73 U/L (46-116); Anion Gap 7.8 mmol/L (3-11); BUN 13 mg/dL (7-18); Bilirubin, Total 0.2 mg/dL (0.2-1.0); CO2 26.2 mmol/L (21.0-32.0); CREATININE 1.5 mg/dL (0.55-1.02); Calcium 9.3 mg/dL (8.5-10.1); Chloride 103 mmol/L (98-107); Glucose 100 mg/dL (74-106); Magnesium 2.1 mg/dL (1.8-2.4); Sodium 137 mmol/L (136-145)
== END 2023-03-15 23:59 | disposition home or self-care (01) ==
LOC: INF 01:52
PROVIDERS: PCP Family Medicine; Visit Provider Internal Medicine Medical Oncology
DX: C34.32 Malignant neoplasm of lower lobe, left bronchus or lung (principal); C78.7 Secondary malignant neoplasm of liver and intrahepatic bile duct; E78.5 Hyperlipidemia, unspecified; Z45.2 Encounter for adjustment and management of vascular access device
CPT/HCPCS: 36591; 80053; 80061; 83735; 84439; 84443; 85025

== ENCOUNTER 2023-06-30 04:57 | Outpatient (RCR) | payer MEDICARE, SELFPAY ==
[2023-06-30 10:02] LABS: Abs Immature Grans 0.01 10^3/uL (0.0-0.06); Absolute Basophil Count 0.08 10^3/uL (0.0-0.2); Absolute Eosinophil Count 0.64 10^3/uL (0.0-0.7); Absolute Lymphocyte Count 1.13 10^3/uL (1.2-3.4); Absolute Monocyte Count 0.67 10^3/uL (0.1-0.8); Absolute Neutrophil Count 4.43 10^3/uL (1.2-6.7); Basophils % 1.1; Eosinophils % 9.2; HCT 42.5 % (36.0-46.0); HGB 13.6 g/dL (11.2-15.7); Immature Grans % 0.1; Lymphocytes % 16.2; MCH 32.9 pg (27.0-33.0); MCV 103 fL (80-95); MPV 10.2 fL (8.0-11.0); Monocytes % 9.6; Neutrophils % 63.8; Platelet Count 235 10^3/uL (130-400); RBC 4.14 10^6/uL (3.93-5.22); RDW 13.2 % (11.7-14.6); RDW-SD 50.3 fL; WBC 6.96 10^3/uL (4.4-10.8)
[2023-06-30 10:20] LABS: ALT 14 U/L (14-59); AST 14 U/L (15-37); Albumin 2.8 g/dL (3.4-5.0); Alkaline Phosphatase 71 U/L (46-116); Anion Gap 6.1 mmol/L (3-11); BUN 24 mg/dL (7-18); Bilirubin, Total 0.3 mg/dL (0.2-1.0); CO2 30.9 mmol/L (21.0-32.0); CREATININE 1.3 mg/dL (0.55-1.02); Calcium 9.5 mg/dL (8.5-10.1); Chloride 102 mmol/L (98-107); Estimated GFR 45.07 (mL/min/1.73m2); Glucose 102 mg/dL (74-106); Magnesium 2.1 mg/dL (1.8-2.4); Potassium 4.4 mmol/L (3.5-5.1); Sodium 139 mmol/L (136-145); Total Protein 7.4 g/dL (6.4-8.2)
== END 2023-07-16 23:59 | disposition home or self-care (01) ==
LOC: INF 04:57
PROVIDERS: PCP Family Medicine; Visit Provider Internal Medicine Medical Oncology
DX: C34.32 Malignant neoplasm of lower lobe, left bronchus or lung (principal); C78.7 Secondary malignant neoplasm of liver and intrahepatic bile duct; Z79.899 Other long term (current) drug therapy
CPT/HCPCS: 36415; 80053; 83735; 85025

== ENCOUNTER 2023-07-21 04:55 | Outpatient (RCR) | payer MEDICARE, SELFPAY ==
[2023-07-21 12:52] LABS: Abs Immature Grans 0.07 10^3/uL (0.0-0.06); Absolute Basophil Count 0.14 10^3/uL (0.0-0.2); Absolute Eosinophil Count 0.95 10^3/uL (0.0-0.7); Absolute Lymphocyte Count 1.04 10^3/uL (1.2-3.4); Absolute Monocyte Count 1.64 10^3/uL (0.1-0.8); Absolute Neutrophil Count 12.23 10^3/uL (1.2-6.7); Basophils % 0.9; Eosinophils % 5.9; HCT 40.7 % (36.0-46.0); HGB 13.4 g/dL (11.2-15.7); Immature Grans % 0.4; Lymphocytes % 6.5; MCH 32.4 pg (27.0-33.0); MCHC 32.9 % (32.0-36.0); MCV 98 fL (80-95); MPV 10.4 fL (8.0-11.0); Monocytes % 10.2; Neutrophils % 76.1; Platelet Count 304 10^3/uL (130-400); RBC 4.14 10^6/uL (3.93-5.22); RDW 14.2 % (11.7-14.6); RDW-SD 49.2 fL; WBC 16.07 10^3/uL (4.4-10.8)
[2023-07-21 13:08] LABS: ALT 17 U/L (14-59); AST 17 U/L (15-37); Albumin 2.8 g/dL (3.4-5.0); Alkaline Phosphatase 71 U/L (46-116); Anion Gap 10.7 mmol/L (3-11); BUN 14 mg/dL (7-18); Bilirubin, Total 0.3 mg/dL (0.2-1.0); CO2 25.3 mmol/L (21.0-32.0); Calcium 9.1 mg/dL (8.5-10.1); Chloride 104 mmol/L (98-107); Estimated GFR 61.75 (mL/min/1.73m2); Glucose 106 mg/dL (74-106); Magnesium 2.1 mg/dL (1.8-2.4); Potassium 3.9 mmol/L (3.5-5.1); Sodium 140 mmol/L (136-145); Total Protein 7.8 g/dL (6.4-8.2)
== END 2023-08-14 23:59 | disposition home or self-care (01) ==
LOC: INF 04:55
PROVIDERS: PCP Family Medicine; Visit Provider Internal Medicine Medical Oncology
DX: C34.32 Malignant neoplasm of lower lobe, left bronchus or lung (principal); C78.7 Secondary malignant neoplasm of liver and intrahepatic bile duct; Z79.899 Other long term (current) drug therapy
CPT/HCPCS: 36415; 80053; 83735; 85025

== ENCOUNTER 2023-09-03 04:40 | Outpatient (RCR) | payer MEDICARE, SELFPAY ==
[2023-09-03] MEDS: Normal Saline Flush 10 ML SYR IVP (12:30)
[2023-09-03 13:17] LABS: HCT 34.8 % (36.0-46.0); HGB 11.3 g/dL (11.2-15.7); MCH 32.5 pg (27.0-33.0); MCHC 32.5 % (32.0-36.0); MCV 100 fL (80-95); MPV 10.7 fL (8.0-11.0); Platelet Count 356 10^3/uL (130-400); RBC 3.48 10^6/uL (3.93-5.22); RDW 18.5 % (11.7-14.6); RDW-SD 66.5 fL
[2023-09-03 13:21] LABS: WBC 27.82 10^3/uL (4.4-10.8)
[2023-09-03 13:32] LABS: ALT 15 U/L (14-59); AST 11 U/L (15-37); Albumin 2.4 g/dL (3.4-5.0); Alkaline Phosphatase 96 U/L (46-116); Anion Gap 6.1 mmol/L (3-11); BUN 22 mg/dL (7-18); Bilirubin, Total 0.3 mg/dL (0.2-1.0); CO2 28.9 mmol/L (21.0-32.0); Calcium 8.4 mg/dL (8.5-10.1); Chloride 103 mmol/L (98-107); Estimated GFR 61.75 (mL/min/1.73m2); Glucose 115 mg/dL (74-106); Magnesium 2.1 mg/dL (1.8-2.4); Potassium 3.9 mmol/L (3.5-5.1); Sodium 138 mmol/L (136-145); Total Protein 6.6 g/dL (6.4-8.2)
[2023-09-03 13:40] LABS: Absolute Eosinophil Count 2.78 10^3/uL (0.0-0.7); Absolute Lymphocyte Count 1.39 10^3/uL (1.2-3.4); Absolute Monocyte Count 1.95 10^3/uL (0.1-0.8); Anisocytosis 2+; Diff Comment Manual Differential
[2023-09-03 13:41] LABS: Macrocytosis 1+
== END 2023-09-14 23:59 | disposition home or self-care (01) ==
LOC: INF 04:40
PROVIDERS: PCP Family Medicine; Visit Provider Internal Medicine Medical Oncology
DX: C34.32 Malignant neoplasm of lower lobe, left bronchus or lung (principal); C78.7 Secondary malignant neoplasm of liver and intrahepatic bile duct; Z79.899 Other long term (current) drug therapy; Z45.2 Encounter for adjustment and management of vascular access device
CPT/HCPCS: 36591; 80053; 83735; 85025

== ENCOUNTER 2023-09-29 05:46 | Outpatient (RCR) | payer MEDICARE, SELFPAY ==
[2023-09-29] MEDS: Normal Saline Flush 10 ML SYR IVP (14:26)
[2023-09-29 14:33] LABS: Abs Immature Grans 1.39 10^3/uL (0.0-0.06); HCT 33.6 % (36.0-46.0); HGB 10.8 g/dL (11.2-15.7); MCH 33.1 pg (27.0-33.0); MCHC 32.1 % (32.0-36.0); MCV 103 fL (80-95); MPV 10.6 fL (8.0-11.0); Platelet Count 248 10^3/uL (130-400); RBC 3.26 10^6/uL (3.93-5.22); RDW 15.9 % (11.7-14.6); RDW-SD 61.2 fL
[2023-09-29 14:46] LABS: ALT 15 U/L (14-59); AST 14 U/L (15-37); Albumin 2.4 g/dL (3.4-5.0); Alkaline Phosphatase 125 U/L (46-116); Anion Gap 8.6 mmol/L (3-11); BUN 16 mg/dL (7-18); Bilirubin, Total 0.3 mg/dL (0.2-1.0); CO2 29.4 mmol/L (21.0-32.0); Calcium 8.6 mg/dL (8.5-10.1); Chloride 101 mmol/L (98-107); Estimated GFR 61.75 (mL/min/1.73m2); Glucose 99 mg/dL (74-106); Magnesium 1.9 mg/dL (1.8-2.4); Potassium 3.8 mmol/L (3.5-5.1); Sodium 139 mmol/L (136-145); Total Protein 6.7 g/dL (6.4-8.2)
[2023-09-29 14:50] LABS: Absolute Lymphocyte Count 1.03 10^3/uL (1.2-3.4); WBC 51.26 10^3/uL (4.4-10.8)
[2023-09-29 14:52] LABS: Absolute Eosinophil Count 4.61 10^3/uL (0.0-0.7); Absolute Monocyte Count 3.59 10^3/uL (0.1-0.8); Absolute Neutrophil Count 42.03 10^3/uL (1.2-6.7); Bands % 7; Diff Comment Manual Differential; RBC Morphology Normal
[2023-09-29 16:29] LABS: FREE T4 1.41 ng/dL (0.76-1.46); TSH 2.37 uIU/Ml (0.36-3.74)
== END 2023-10-14 23:59 | disposition home or self-care (01) ==
LOC: INF 05:46
PROVIDERS: PCP Family Medicine; Visit Provider Internal Medicine Medical Oncology
DX: C34.32 Malignant neoplasm of lower lobe, left bronchus or lung (principal); C78.7 Secondary malignant neoplasm of liver and intrahepatic bile duct; Z79.899 Other long term (current) drug therapy
CPT/HCPCS: 36591; 80053; 83735; 84439; 84443; 85025